=== PATIENT | female | born 1930 | race Caucasian/White ===

== ENCOUNTER 2019-07-04 15:13 | Inpatient (IN) | payer MEDICARE ==
[~2019-07-04] VITALS: Ht 149.9 cm; Wt 89.0 kg
--- NOTE | 2019-07-04 16:03 | PHYS DOC ---
Past Medical History Attending Signature I have participated in the care of this patient and I have reviewed and agree with all pertinent clinical information above including history, exam, and recommendations. (NATASHA NUÑEZ MD) Adult General Chief Complaint Chief Complaint: LOWER EXT PAIN HPI HPI Patient is a 88 year old female who presents with patient states that one week ago she was diagnosed with a right lower leg DVT by her doctor, Dr Michaels. She states she has had DVT in this leg twice before. Patient states they started her on injection that she cannot remember the name of the medication. She states she has been on it for 3 days now. Patient states that she's having increased pain in the right lower leg along the lateral side of the leg and states that the swelling is worse. She rates her pain a 6 out of 10. (CARL ARAIZA APRN) Review of Systems Review of Systems Musculoskeletal: Right leg pain and swelling. Denies back pain or joint pain [] All other systems were reviewed and found to be within normal limits, except as documented in this note. (CARL ARAIZA APRN) Allergies Allergies Allergies Coded Allergies Type Severity Reaction Last Updated Verified oxaprozin Allergy Intermediate 07/04/19 Yes (NATASHA NUÑEZ MD) Physical Exam Physical Exam Constitutional: Well developed, well nourished, no acute distress, non-toxic appearance. [] HENT: Normocephalic, atraumatic, bilateral external ears normal, oropharynx moist, no oral exudates, nose normal. [] Eyes: PERRLA, EOMI, conjunctiva normal, no discharge. [] Neck: Normal range of motion, no tenderness, supple, no stridor. [] Cardiovascular:Heart rate regular rhythm, no murmur [] Lungs & Thorax: Bilateral breath sounds clear to auscultation [] Skin: Warm, dry, no erythema, no rash. [] Extremities: Right calf tenderness, no cyanosis, no clubbing, ROM intact, Right leg 1+, and left leg2+ edema. [] Neurologic: Alert and oriented X 3, normal motor function, normal sensory function, no focal deficits noted. [] Psychologic: Affect normal, judgement normal, mood normal. [] (CARL ARAIZA APRN) Current Patient Data Vital Signs Vital Signs Date Time Temp Pulse Resp B/P (MAP) Pulse Ox O2 Delivery O2 Flow Rate FiO2 07/04/19 19:10 61 14 170/113 (132) 98 Room Air 07/04/19 15:47 98.3 98.3 (NATASHA NUÑEZ MD) Lab Values Laboratory Tests Test 07/04/19 16:17 White Blood Count 6.0 x10^3/uL (4.0-11.0) Red Blood Count 4.40 x10^6/uL (3.50-5.40) Hemoglobin 13.3 g/dL (12.0-15.5) Hematocrit 39.0 % (36.0-47.0) Mean Corpuscular Volume 89 fL (79-100) Mean Corpuscular Hemoglobin 30 pg (25-35) Mean Corpuscular Hemoglobin Concent 34 g/dL (31-37) Red Cell Distribution Width 14.1 % (11.5-14.5) Platelet Count 156 x10^3/uL (140-400) Neutrophils (%) (Auto) 59 % (31-73) Lymphocytes (%) (Auto) 28 % (24-48) Monocytes (%) (Auto) 12 % (0-9) H Eosinophils (%) (Auto) 1 % (0-3) Basophils (%) (Auto) 0 % (0-3) Neutrophils # (Auto) 3.5 x10^3/uL (1.8-7.7) Lymphocytes # (Auto) 1.7 x10^3/uL (1.0-4.8) Monocytes # (Auto) 0.7 x10^3/uL (0.0-1.1) Eosinophils # (Auto) 0.0 x10^3/uL (0.0-0.7) Basophils # (Auto) 0.0 x10^3/uL (0.0-0.2) Prothrombin Time 13.7 SEC (11.7-14.0) Prothrombin Time INR 1.1 (0.8-1.1) Sodium Level 134 mmol/L (136-145) L Potassium Level 4.6 mmol/L (3.5-5.1) Chloride Level 98 mmol/L (98-107) Carbon Dioxide Level 25 mmol/L (21-32) Anion Gap 11 (6-14) Blood Urea Nitrogen 41 mg/dL (7-20) H Creatinine 1.7 mg/dL (0.6-1.0) H Estimated GFR (Cockcroft-Gault) 28.3 BUN/Creatinine Ratio 24 (6-20) H Glucose Level 163 mg/dL (70-99) H Calcium Level 9.5 mg/dL (8.5-10.1) Total Bilirubin 0.6 mg/dL (0.2-1.0) Aspartate Amino Transferase (AST) 50 U/L (15-37) H Alanine Aminotransferase (ALT) 58 U/L (14-59) Alkaline Phosphatase 70 U/L (46-116) Total Protein 6.9 g/dL (6.4-8.2) Albumin 3.5 g/dL (3.4-5.0) Albumin/Globulin Ratio 1.0 (1.0-1.7) Laboratory Tests 07/04/19 16:17 Laboratory Tests 07/04/19 16:17 (NATASHA NUÑEZ MD) Lab Values Laboratory Tests Test 07/04/19 16:17 White Blood Count 6.0 x10^3/uL (4.0-11.0) Red Blood Count 4.40 x10^6/uL (3.50-5.40) Hemoglobin 13.3 g/dL (12.0-15.5) Hematocrit 39.0 % (36.0-47.0) Mean Corpuscular Volume 89 fL (79-100) Mean Corpuscular Hemoglobin 30 pg (25-35) Mean Corpuscular Hemoglobin Concent 34 g/dL (31-37) Red Cell Distribution Width 14.1 % (11.5-14.5) Platelet Count 156 x10^3/uL (140-400) Neutrophils (%) (Auto) 59 % (31-73) Lymphocytes (%) (Auto) 28 % (24-48) Monocytes (%) (Auto) 12 % (0-9) H Eosinophils (%) (Auto) 1 % (0-3) Basophils (%) (Auto) 0 % (0-3) Neutrophils # (Auto) 3.5 x10^3/uL (1.8-7.7) Lymphocytes # (Auto) 1.7 x10^3/uL (1.0-4.8) Monocytes # (Auto) 0.7 x10^3/uL (0.0-1.1) Eosinophils # (Auto) 0.0 x10^3/uL (0.0-0.7) Basophils # (Auto) 0.0 x10^3/uL (0.0-0.2) Prothrombin Time 13.7 SEC (11.7-14.0) Prothrombin Time INR 1.1 (0.8-1.1) Sodium Level 134 mmol/L (136-145) L Potassium Level 4.6 mmol/L (3.5-5.1) Chloride Level 98 mmol/L (98-107) Carbon Dioxide Level 25 mmol/L (21-32) Anion Gap 11 (6-14) Blood Urea Nitrogen 41 mg/dL (7-20) H Creatinine 1.7 mg/dL (0.6-1.0) H Estimated GFR (Cockcroft-Gault) 28.3 BUN/Creatinine Ratio 24 (6-20) H Glucose Level 163 mg/dL (70-99) H Calcium Level 9.5 mg/dL (8.5-10.1) Total Bilirubin 0.6 mg/dL (0.2-1.0) Aspartate Amino Transferase (AST) 50 U/L (15-37) H Alanine Aminotransferase (ALT) 58 U/L (14-59) Alkaline Phosphatase 70 U/L (46-116) Total Protein 6.9 g/dL (6.4-8.2) Albumin 3.5 g/dL (3.4-5.0) Albumin/Globulin Ratio 1.0 (1.0-1.7) Laboratory Tests 07/04/19 16:17 Laboratory Tests 07/04/19 16:17 (CARL ARAIZA APRN) EKG EKG [] (CARL ARAIZA APRN) Radiology/Procedures Radiology/Procedures [] (CARL ARAIZA APRN) Impressions: [facility] [address] [place], [place] [id number] IMAGING REPORT Signed PATIENT: ROXANN MYERS ACCOUNT: [id number] : 1930 LOCATION: ER AGE: 88 SEX: F EXAM STATUS: REG ER ORD. PHYSICIAN: CARL ARAIZA APRN REASON: recently dx dvt right leg, increase swelling, swelling more in left PROCEDURE: VENOUS LOWER EXT BILATERAL Exam: Bilateral lower extremity venous duplex study INDICATION: Leg swelling TECHNIQUE: Using a combination of real-time ultrasound imaging and color-flow and pulse Doppler imaging techniques along with graded compression and augmentation, duplex evaluation of the deep venous systems of bilateral lower extremity was performed. Multiple images were obtained. Findings: Nonocclusive thrombus in the anterior peroneal vein on the right, similar when compared to the study on 06/25/2019. Otherwise, There is no sonographic evidence for deep venous thrombosis involving the visualized deep venous structures of the bilateral lower extremity. IMPRESSION: 1. Similar appearing nonocclusive thrombus in the right anterior peroneal vein. 2. No left DVT. Electronically signed by: Kim Yap MD (07/04/2019 6:58 PM) [facility] DICTATED and SIGNED BY: KIM YAP MD DATE: 07/04/19 1858 (CARL ARAIZA APRN) Course & Med Decision Making Course & Med Decision Making Patient is a 88 year old female who presents with patient states that one week ago she was diagnosed with a right lower leg DVT by her doctor, Dr Michaels. She states she has had DVT in this leg twice before. Patient states they started her on injection that she cannot remember the name of the medication. She states she has been on it for 3 days now. Patient states that she's having increased pain in the right lower leg along the lateral side of the leg and states that the swelling is worse. She rates her pain a 6 out of 10. Alert and oriented. Ambulatory with a steady gait. Pedal pulses bilaterally are strong and present. Cap refill less than 3 seconds. Patient's right leg looks to have 1+ edema compared to the left leg that is actually more swollen with 2+ edema. Patient only complains of the right leg pain and DVT. Because the left leg is actually more swollen than the right leg I will ultrasound the left leg also. Lungs are c lear to auscultation all lobes. PERRLA. Patient denies headache, dizziness, chest pain, shortness of air, visual changes, weakness, numbness or tingling, skin color changes or temperature changes. Skin pink warm and dry. Right calf tenderness with palpation. equal strong strengths bilaterally lower extremities. US Lower legs: 1. Similar appearing nonocclusive thrombus in the right anterior peroneal vein. 2. No left DVT. Dr Richmond went and saw this patient and then called Dr Michaels. Patient is admitted to Dr Richmond. He states to keep the patient on Lovenox 80mg and consult vascular surgery. (CARL ARAIZA APRN) Dragon Disclaimer Dragon Disclaimer This electronic medical record was generated, in whole or in part, using a voice recognition dictation system. (CARL ARAIZA APRN) Departure Departure Impression: Primary Impression: DVT (deep venous thrombosis) Disposition: ADMITTED INPATIENT Admitting Physician: DANICA (CARL ARAIZA APRN) Condition: STABLE Problem Qualifiers Primary Impression: DVT (deep venous thrombosis) DVT location: lower extremity Affected thrombotic vein of extremity: unspecified lower extremity distal vein Chronicity: acute Laterality: right Qualified Codes: I82.4Z1 - Acute embolism and thrombosis of unspecified deep veins of right distal lower extremity CARL ARAIZA APRN Jul 04, 2019 16:03 NATASHA NUÑEZ MD Jul 05, 2019 09:40
[2019-07-04 16:25] LABS: BASO % 0 % (0-3); EOS % 1 % (0-3); HEMOGLOBIN 13.3 g/dL (12.0-15.5); LYMPH # 1.7 x10^3/uL (1.0-4.8); LYMPH % 28 % (24-48); MEAN CORPUSCULAR HEMOGLOBIN 30 pg (25-35); MEAN CORPUSCULAR HGB CONC 34 g/dL (31-37); MEAN CORPUSCULAR VOLUME 89 fL (79-100); MONO # 0.7 x10^3/uL (0.0-1.1); MONO % 12 % (0-9); NEUT # 3.5 x10^3/uL (1.8-7.7); NEUT % 59 % (31-73); PLATELET COUNT 156 x10^3/uL (140-400); RED CELL DISTRIBUTION WIDTH 14.1 % (11.5-14.5)
[2019-07-04 16:34] LABS: PROTHROMBIN TIME PATIENT 13.7 SEC (11.7-14.0)
[2019-07-04 16:43] LABS: CALCIUM 9.5 mg/dL (8.5-10.1); CREATININE 1.7 mg/dL (0.6-1.0); GFR 28.3; POTASSIUM 4.6 mmol/L (3.5-5.1)
[2019-07-04 16:49] LABS: ALBUMIN 3.5 g/dL (3.4-5.0); TOTAL BILIRUBIN 0.6 mg/dL (0.2-1.0); TOTAL PROTEIN 6.9 g/dL (6.4-8.2)
--- NOTE | 2019-07-04 19:01 | RAD ---
Exam: Bilateral lower extremity venous duplex study INDICATION: Leg swelling TECHNIQUE: Using a combination of real-time ultrasound imaging and color-flow and pulse Doppler imaging techniques along with graded compression and augmentation, duplex evaluation of the deep venous systems of bilateral lower extremity was performed. Multiple images were obtained. Findings: Nonocclusive thrombus in the anterior peroneal vein on the right, similar when compared to the study on 06/25/2019. Otherwise, There is no sonographic evidence for deep venous thrombosis involving the visualized deep venous structures of the bilateral lower extremity. IMPRESSION: 1. Similar appearing nonocclusive thrombus in the right anterior peroneal vein. 2. No left DVT. Electronically signed by: Kim Juan MD (07/04/2019 6:58 PM) [facility]
[2019-07-04] MEDS ORDERED: ONDANSETRON PF 4 MG/2 ML VIAL. IV PRN (19:45)
[2019-07-04] MEDS: fentaNYL PF VIAL 100 MCG/2 ML VIAL IV PRN (19:49)
--- NOTE | 2019-07-04 20:16 | HP ---
ADMIT DATE: 07/04/2019 CHIEF COMPLAINT: Extremity pain. HISTORY OF PRESENT ILLNESS: The patient is a pleasant 88-year-old female who had a recent diagnosis of a DVT in the right lower extremity. Dr. Michaels tried her on Eliquis, but the patient came back a week or so later and he did some more imaging because her leg was still hurting. Apparently, the clock got worse. Now, she presents to our ER with the same problem, her leg is hurting. We checked some imaging, the clot really is not worse, but is still there. I called Dr. Michaels. I talked to the ER doctor as well. We are going to admit the patient and consult Vascular Surgery. PAST MEDICAL HISTORY: The above-mentioned DVT. ALLERGIES: OXAPROZIN. FAMILY HISTORY: Coronary artery disease. SOCIAL HISTORY: She does not drink, smoke or take drugs. She is retired. MEDICATIONS: Reviewed, please refer to the MRAD. REVIEW OF SYSTEMS: GENERAL: No history of weight change, weakness or fevers. SKIN: No bruising, hair changes or rashes. EYES: No blurred, double or loss of vision. NOSE AND THROAT: No history of nosebleeds, hoarseness or sore throat. HEART: No history of palpitations, chest pain or shortness of breath on exertion. LUNGS: Denies cough, hemoptysis, wheezing or shortness of breath. GASTROINTESTINAL: Denies changes in appetite, nausea, vomiting, diarrhea or constipation. GENITOURINARY: No history of frequency, urgency, hesitancy or nocturia. NEUROLOGIC: Denies history of numbness, tingling, tremor or weakness. PSYCHIATRIC: No history of panic, anxiety or depression. ENDOCRINE: No history of heat or cold intolerance, polyuria or polydipsia. EXTREMITIES: She complains of right leg pain. PHYSICAL EXAMINATION: VITALS: Within normal limits and are stable. GENERAL: No apparent distress. Alert and oriented. HEENT: Head is normocephalic, atraumatic, pupils were equally round and reactive to light and accommodation. NECK: Supple, no JVD, no thyromegaly was noted. LUNGS: Clear to auscultation in all lung bennett without rhonchi or wheezing. HEART: RRR, S1, S2 present. Peripheral pulses intact, no obvious murmurs were noted. ABDOMEN: Soft, nontender. Positive bowel sounds no organomegaly, normal bowel sounds. EXTREMITIES: Without any cyanosis, clubbing, or edema. Pedal pulses intact, Homans sign is negative. NEUROLOGIC: Normal speech, normal tone. A & O x3, moves all extremities, no obvious focal deficits. PSYCHIATRIC: Normal affect, normal mood. Stable. SKIN: No ulcerations or rashes, good skin turgor, no jaundice. VASCULAR: Good capillary refill, neurovascular bundle appears to be intact. LABORATORY DATA: White count 6, hemoglobin 13, platelets 156. Electrolytes: Sodium 134, BUN is 41, creatinine 1.7, glucose 163. AST is slightly high at 50. INR is 1.1. ASSESSMENT AND PLAN: Acute on chronic deep venous thrombosis with worsening leg pain. The patient is being admitted. We will consult Vascular Surgery. Lovenox 1 mg/kg subq q.12, home meds, p.r.n. Lortab, IV hydration. TORSTEN BROWN DO DR: JARON/sol JOB#: [id number] / [id number]
[2019-07-04] MEDS: IV NORMAL SALINE 1000ML BAG 1,000 ML IV SCH (21:26)
[2019-07-04 21:31] VITALS: BP 185/62
[2019-07-04 23:46] VITALS: BP 197/62
[2019-07-05 03:42] VITALS: BP 190/66
[2019-07-05] MEDS: fentaNYL PF VIAL 100 MCG/2 ML VIAL IV PRN (05:37)
[2019-07-05] MEDS ORDERED: CHOL200074 PO (06:25)
[2019-07-05] MEDS ORDERED: PANT40TA77 PO (06:25)
[2019-07-05] MEDS ORDERED: MAGN400T22 PO (06:25)
[2019-07-05] MEDS ORDERED: ATOR40TA59 PO (06:25)
[2019-07-05] MEDS ORDERED: LEVO112T4 PO (06:25)
[2019-07-05] MEDS ORDERED: LOSA-73 PO (06:25)
[2019-07-05] MEDS ORDERED: BYSTOLIC10 MG PO (06:25)
[2019-07-05 07:59] VITALS: BP 129/60
--- NOTE | 2019-07-05 08:01 | PDOC ---
PROGRESS NOTES History of Present Illness History of Present Illness ASSESSMENT AND PLAN: Acute on chronic deep venous thrombosis with worsening leg pain. similar appearing nonocclusive thrombus in the right anterior peroneal vein. No left DVT. morbid obesity admitted. consult Vascular Surgery. Lovenox 1 mg/kg subq q.12, home meds, p.r.n. Lortab, IV hydration. id consult nephrology consult eliquis 5 mg po bid full anticoagulation for at least 3 months // DVT and compression stockings. 30 min pt exam, chart review, > 50% of time spent with exam, chart review, pt care coordination Vitals Vitals Vital Signs Date Time Temp Pulse Resp B/P (MAP) Pulse Ox O2 Delivery O2 Flow Rate FiO2 07/05/19 06:07 Room Air 07/05/19 03:42 97.7 59 18 190/66 (107) 96 97.7 Physical Exam Physical Exam NECK: Supple, no JVD, no thyromegaly was noted. LUNGS: Clear to auscultation in all lung bennett without rhonchi or wheezing. HEART: RRR, S1, S2 present. Peripheral pulses intact, no obvious murmurs were noted. ABDOMEN: Soft, nontender. Positive bowel sounds no organomegaly, normal bowel sounds. EXTREMITIES: Without any cyanosis, clubbing, or edema. Pedal pulses intact, Homans sign is negative. NEUROLOGIC: Normal speech, normal tone. A & O x3, moves all extremities, no obvious focal deficits. PSYCHIATRIC: Normal affect, normal mood. Stable. SKIN: No ulcerations or rashes, good skin turgor, no jaundice. VASCULAR: Good capillary refill, neurovascular bundle appears to be intact. General: Alert, Oriented X3, Cooperative, No acute distress Lungs: Clear Abdomen: Normal bowel sounds, Soft Extremities: No cyanosis Labs LABS Exam: Bilateral lower extremity venous duplex study INDICATION: Leg swelling TECHNIQUE: Using a combination of real-time ultrasound imaging and color-flow and pulse Doppler imaging techniques along with graded compression and augmentation, duplex evaluation of the deep venous systems of bilateral lower extremity was performed. Multiple images were obtained. Findings: Nonocclusive thrombus in the anterior peroneal vein on the right, similar when compared to the study on 06/25/2019. Otherwise, There is no sonographic evidence for deep venous thrombosis involving the visualized deep venous structures of the bilateral lower extremity. IMPRESSION: 1. Similar appearing nonocclusive thrombus in the right anterior peroneal vein. 2. No left DVT. Electronically signed by: Waylon Yap MD (07/04/2019 6:58 PM) [facility] DICTATED and SIGNED BY: WAYLON YAP MD DATE: 07/04/19 [id number] Laboratory Tests Test 07/04/19 16:17 White Blood Count 6.0 x10^3/uL (4.0-11.0) Red Blood Count 4.40 x10^6/uL (3.50-5.40) Hemoglobin 13.3 g/dL (12.0-15.5) Hematocrit 39.0 % (36.0-47.0) Mean Corpuscular Volume 89 fL (79-100) Mean Corpuscular Hemoglobin 30 pg (25-35) Mean Corpuscular Hemoglobin Concent 34 g/dL (31-37) Red Cell Distribution Width 14.1 % (11.5-14.5) Platelet Count 156 x10^3/uL (140-400) Neutrophils (%) (Auto) 59 % (31-73) Lymphocytes (%) (Auto) 28 % (24-48) Monocytes (%) (Auto) 12 % (0-9) Eosinophils (%) (Auto) 1 % (0-3) Basophils (%) (Auto) 0 % (0-3) Neutrophils # (Auto) 3.5 x10^3/uL (1.8-7.7) Lymphocytes # (Auto) 1.7 x10^3/uL (1.0-4.8) Monocytes # (Auto) 0.7 x10^3/uL (0.0-1.1) Eosinophils # (Auto) 0.0 x10^3/uL (0.0-0.7) Basophils # (Auto) 0.0 x10^3/uL (0.0-0.2) Prothrombin Time 13.7 SEC (11.7-14.0) Prothromb Time International Ratio 1.1 (0.8-1.1) Sodium Level 134 mmol/L (136-145) Potassium Level 4.6 mmol/L (3.5-5.1) Chloride Level 98 mmol/L (98-107) Carbon Dioxide Level 25 mmol/L (21-32) Anion Gap 11 (6-14) Blood Urea Nitrogen 41 mg/dL (7-20) Creatinine 1.7 mg/dL (0.6-1.0) Estimated GFR (Cockcroft-Gault) 28.3 BUN/Creatinine Ratio 24 (6-20) Glucose Level 163 mg/dL (70-99) Calcium Level 9.5 mg/dL (8.5-10.1) Total Bilirubin 0.6 mg/dL (0.2-1.0) Aspartate Amino Transf (AST/SGOT) 50 U/L (15-37) Alanine Aminotransferase (ALT/SGPT) 58 U/L (14-59) Alkaline Phosphatase 70 U/L (46-116) Total Protein 6.9 g/dL (6.4-8.2) Albumin 3.5 g/dL (3.4-5.0) Albumin/Globulin Ratio 1.0 (1.0-1.7) Assessment and Plan Assessmemt and Plan Problems Medical Problems: (1) DVT (deep venous thrombosis) Status: Acute Comment Review of Relevant I have reviewed the following items manju (where applicable) has been applied. Labs Laboratory Tests Test 07/04/19 16:17 White Blood Count 6.0 x10^3/uL (4.0-11.0) Red Blood Count 4.40 x10^6/uL (3.50-5.40) Hemoglobin 13.3 g/dL (12.0-15.5) Hematocrit 39.0 % (36.0-47.0) Mean Corpuscular Volume 89 fL (79-100) Mean Corpuscular Hemoglobin 30 pg (25-35) Mean Corpuscular Hemoglobin Concent 34 g/dL (31-37) Red Cell Distribution Width 14.1 % (11.5-14.5) Platelet Count 156 x10^3/uL (140-400) Neutrophils (%) (Auto) 59 % (31-73) Lymphocytes (%) (Auto) 28 % (24-48) Monocytes (%) (Auto) 12 % (0-9) Eosinophils (%) (Auto) 1 % (0-3) Basophils (%) (Auto) 0 % (0-3) Neutrophils # (Auto) 3.5 x10^3/uL (1.8-7.7) Lymphocytes # (Auto) 1.7 x10^3/uL (1.0-4.8) Monocytes # (Auto) 0.7 x10^3/uL (0.0-1.1) Eosinophils # (Auto) 0.0 x10^3/uL (0.0-0.7) Basophils # (Auto) 0.0 x10^3/uL (0.0-0.2) Prothrombin Time 13.7 SEC (11.7-14.0) Prothromb Time International Ratio 1.1 (0.8-1.1) Sodium Level 134 mmol/L (136-145) Potassium Level 4.6 mmol/L (3.5-5.1) Chloride Level 98 mmol/L (98-107) Carbon Dioxide Level 25 mmol/L (21-32) Anion Gap 11 (6-14) Blood Urea Nitrogen 41 mg/dL (7-20) Creatinine 1.7 mg/dL (0.6-1.0) Estimated GFR (Cockcroft-Gault) 28.3 BUN/Creatinine Ratio 24 (6-20) Glucose Level 163 mg/dL (70-99) Calcium Level 9.5 mg/dL (8.5-10.1) Total Bilirubin 0.6 mg/dL (0.2-1.0) Aspartate Amino Transf (AST/SGOT) 50 U/L (15-37) Alanine Aminotransferase (ALT/SGPT) 58 U/L (14-59) Alkaline Phosphatase 70 U/L (46-116) Total Protein 6.9 g/dL (6.4-8.2) Albumin 3.5 g/dL (3.4-5.0) Albumin/Globulin Ratio 1.0 (1.0-1.7) Laboratory Tests Test 07/04/19 16:17 White Blood Count 6.0 x10^3/uL (4.0-11.0) Red Blood Count 4.40 x10^6/uL (3.50-5.40) Hemoglobin 13.3 g/dL (12.0-15.5) Hematocrit 39.0 % (36.0-47.0) Mean Corpuscular Volume 89 fL (79-100) Mean Corpuscular Hemoglobin 30 pg (25-35) Mean Corpuscular Hemoglobin Concent 34 g/dL (31-37) Red Cell Distribution Width 14.1 % (11.5-14.5) Platelet Count 156 x10^3/uL (140-400) Neutrophils (%) (Auto) 59 % (31-73) Lymphocytes (%) (Auto) 28 % (24-48) Monocytes (%) (Auto) 12 % (0-9) Eosinophils (%) (Auto) 1 % (0-3) Basophils (%) (Auto) 0 % (0-3) Neutrophils # (Auto) 3.5 x10^3/uL (1.8-7.7) Lymphocytes # (Auto) 1.7 x10^3/uL (1.0-4.8) Monocytes # (Auto) 0.7 x10^3/uL (0.0-1.1) Eosinophils # (Auto) 0.0 x10^3/uL (0.0-0.7) Basophils # (Auto) 0.0 x10^3/uL (0.0-0.2) Prothrombin Time 13.7 SEC (11.7-14.0) Prothromb Time International Ratio 1.1 (0.8-1.1) Sodium Level 134 mmol/L (136-145) Potassium Level 4.6 mmol/L (3.5-5.1) Chloride Level 98 mmol/L (98-107) Carbon Dioxide Level 25 mmol/L (21-32) Anion Gap 11 (6-14) Blood Urea Nitrogen 41 mg/dL (7-20) Creatinine 1.7 mg/dL (0.6-1.0) Estimated GFR (Cockcroft-Gault) 28.3 BUN/Creatinine Ratio 24 (6-20) Glucose Level 163 mg/dL (70-99) Calcium Level 9.5 mg/dL (8.5-10.1) Total Bilirubin 0.6 mg/dL (0.2-1.0) Aspartate Amino Transf (AST/SGOT) 50 U/L (15-37) Alanine Aminotransferase (ALT/SGPT) 58 U/L (14-59) Alkaline Phosphatase 70 U/L (46-116) Total Protein 6.9 g/dL (6.4-8.2) Albumin 3.5 g/dL (3.4-5.0) Albumin/Globulin Ratio 1.0 (1.0-1.7) Medications Current Medications Ondansetron HCl (Zofran) 4 mg PRN Q8HRS PRN IV NAUSEA/VOMITING; Start 07/04/19 at 19:45; Stop 07/05/19 at 19:44 Fentanyl Citrate (Fentanyl 2ml Vial) 50 mcg PRN Q1HR PRN IV PAIN Last administered on 07/05/19at 05:37; Start 07/04/19 at 19:45; Stop 07/05/19 at 19:44 Enoxaparin Sodium (Lovenox 80mg Syringe) 80 mg 1X ONCE SQ Last administered on 07/04/19at 19:49; Start 07/04/19 at 19:45; Stop 07/04/19 at 19:46; Status DC Enoxaparin Sodium (Lovenox Per Pharmacy Treatment Dosing) 1 each PRN DAILY PRN MC SEE COMMENTS; Start 07/04/19 at 20:30 Sodium Chloride 1,000 ml @ 75 mls/hr [id number] IV Last administered on 07/04/19at 21:26; Start 07/04/19 at 20:00 Enoxaparin Sodium (Lovenox 40mg Syringe) 40 mg Q24H SQ ; Start 07/05/19 at 21:00; Stop 07/04/19 at 20:18; Status DC Acetaminophen/ Hydrocodone Bitart (Lortab 5/325) 1 tab Q6HRS PRN PO PAIN; Start 07/04/19 at 20:15 Enoxaparin Sodium (Lovenox 100mg Syringe) 90 mg QHS SQ ; Start 07/05/19 at 21:00 Active Scripts Active Reported Mag-Oxide (Magnesium Oxide) 400 Mg Tablet 1 Tab PO DAILY 30 Days Vitamin D-3 (Cholecalciferol (Vitamin D3)) 2,000 Unit Capsule 1 Cap PO DAILY 30 Days Losartan Potassium 50 Mg Tablet 50 Mg PO DAILY Atorvastatin Calcium 40 Mg Tablet 1 Tab PO QHS Bystolic (Nebivolol) 10 Mg Tablet 10 Mg PO DAILY Levothyroxine Sodium 112 Mcg Tablet 1 Tab PO DAILY Protonix (Pantoprazole Sodium) 40 Mg Tablet.dr 40 Mg PO DAILYAC Vitals/I & O Vital Sign - Last 24 Hours 07/04/19 07/04/19 07/04/19 07/04/19 15:47 16:10 16:40 17:10 Temp 98.3 98.3 Pulse 63 65 56 55 Resp 16 14 14 14 B/P (MAP) 222/87 (132) 164/72 (102) 163/70 (101) 171/72 (105) Pulse Ox 96 98 97 99 O2 Delivery Room Air Room Air Room Air Room Air 07/04/19 07/04/19 07/04/19 07/04/19 17:40 18:11 18:40 19:10 Pulse 54 58 54 61 Resp 14 14 14 14 B/P (MAP) 171/72 (105) 142/65 (90) 173/76 (108) 170/113 (132) Pulse Ox 97 97 98 98 O2 Delivery Room Air Room Air Room Air Room Air 07/04/19 07/04/19 07/04/19 07/04/19 19:40 19:49 20:10 20:45 Pulse 66 55 Resp 14 14 B/P (MAP) 179/93 (121) 187/77 (113) Pulse Ox 98 98 O2 Delivery Room Air Room Air Room Air Room Air 07/04/19 07/04/19 07/04/19 07/05/19 20:45 21:31 23:46 03:42 Temp 97.4 97.5 97.7 97.4 97.5 97.7 Pulse 60 61 59 Resp 18 20 18 B/P (MAP) 185/62 (103) 197/62 (107) 190/66 (107) Pulse Ox 97 98 96 O2 Delivery Room Air Room Air Room Air Room Air 07/05/19 07/05/19 05:37 06:07 O2 Delivery Room Air Room Air Intake and Output 07/04/19 07/04/19 07/05/19 15:00 23:00 07:00 Intake Total 320 ml Balance 320 ml SARAH CRUM MD Jul 05, 2019 08:01
[2019-07-05] MEDS: NYSTATIN TOPICAL POWDER 15GM BOTTLE. TP SCH ×2 (09:20→21:11)
[2019-07-05 11:00] VITALS: BP 169/69
[2019-07-05] MEDS: ANTI-COAG MONITOR BY PHARMACY. MC PRN (12:39)
[2019-07-05] MEDS: IV NORMAL SALINE 1000ML BAG 1,000 ML IV SCH ×2 (13:04→21:09)
--- NOTE | 2019-07-05 13:09 | PDOC2 ---
CONSULT Date of Consult Date of Consult DATE: 07/05/19 TIME: 13:07 Reason for Consult Reason for Consult: CRI Referring Physician Referring Physician: Yi Identification/Chief Complaint Chief Complaint DVT Source Source: Chart review, Patient History of Present Illness Reason for Visit: Raisa is a pleasant 88-year-old female who well followed for her security needs in the past. She has since transitioned to Dr. Garcia due to proximity in the [facility]. She claims she fell a few months ago in the yard and was noted to have issues with swelling in her lower extremity. She did have a previous lower extremity DVT in her right lower extremity. She was on Eliquis for a week or so. She continued to have pain and discomfort in her lower extremity and reimaging studies showed progression of her DVT. She was hence asked to present to the ER for further evaluation. He is known to have underlying chronic kidney disease, baseline creatinine is not known from our system. She does not recollect what her most recent creatinine or GFR has been. Given the weekend am unable to ascertain this from the office either. We were asked to see her and follow her for the same. Past Medical History Cardiovascular: CAD, HTN, Hyperlipidemia Musculoskeletal: Osteoarthritis Renal/: Chronic renal insuff Endocrine: Diabetes Family History Family History NC due to age Social History No ALCOHOL: none Lives: Alone Current Problem List Problem List Problems Medical Problems: (1) DVT (deep venous thrombosis) Status: Acute Current Medications Current Medications Current Medications Ondansetron HCl (Zofran) 4 mg PRN Q8HRS PRN IV NAUSEA/VOMITING; Start 07/04/19 at 19:45; Stop 07/05/19 at 19:44 Fentanyl Citrate (Fentanyl 2ml Vial) 50 mcg PRN Q1HR PRN IV PAIN Last administered on 07/05/19at 05:37; Start 07/04/19 at 19:45; Stop 07/05/19 at 19:44 Enoxaparin Sodium (Lovenox 80mg Syringe) 80 mg 1X ONCE SQ Last administered on 07/04/19at 19:49; Start 07/04/19 at 19:45; Stop 07/04/19 at 19:46; Status DC Enoxaparin Sodium (Lovenox Per Pharmacy Treatment Dosing) 1 each PRN DAILY PRN MC SEE COMMENTS; Start 07/04/19 at 20:30 Sodium Chloride 1,000 ml @ 75 mls/hr [id number] IV Last administered on 07/05/19at 13:04; Start 07/04/19 at 20:00 Enoxaparin Sodium (Lovenox 40mg Syringe) 40 mg Q24H SQ ; Start 07/05/19 at 21:00; Stop 07/04/19 at 20:18; Status DC Acetaminophen/ Hydrocodone Bitart (Lortab 5/325) 1 tab Q6HRS PRN PO PAIN; Start 07/04/19 at 20:15 Enoxaparin Sodium (Lovenox 100mg Syringe) 90 mg QHS SQ ; Start 07/05/19 at 21:00 Nystatin (Nystop) 1 prateek BID TP Last administered on 07/05/19at 09:20; Start 07/05/19 at 09:00 Info (Anti-Coagulation Monitoring By Pharmacy) 1 each PRN DAILY PRN MC SEE COMMENTS Last administered on 07/05/19at 12:39; Start 07/05/19 at 12:45 Active Scripts Active Reported Mag-Oxide (Magnesium Oxide) 400 Mg Tablet 1 Tab PO DAILY 30 Days Vitamin D-3 (Cholecalciferol (Vitamin D3)) 2,000 Unit Capsule 1 Cap PO DAILY 30 Days Losartan Potassium 50 Mg Tablet 50 Mg PO DAILY Atorvastatin Calcium 40 Mg Tablet 1 Tab PO QHS Bystolic (Nebivolol) 10 Mg Tablet 10 Mg PO DAILY Levothyroxine Sodium 112 Mcg Tablet 1 Tab PO DAILY Protonix (Pantoprazole Sodium) 40 Mg Tablet.dr 40 Mg PO DAILYAC Allergies Allergies: Coded Allergies: oxaprozin (Verified Allergy, Intermediate, 07/04/19) ROS Review of System Negative other than as reviewed under history of present illness Physical Exam Physical Exam General Appearance: Awake Alert Oriented x 3 In no Distress Eyes: VIsion Unchanged Conjunctiva Normal EN: No EN Drainage Mucous Memb. moist Neck: no JVD no JVP Supple no Thyromegaly CVS: S1 S2 no Murmur No Gallop No Rub + Edema R>> L Resp: no Rales no Rhonchi no Acc. Muscle use GI: BAS +ve NO Bruit Non Tender Non Distended : no CVA tenderness; no Suprapubic Tenderness SKIN: no Rashes Breast Exam deferred Mu.Sk: Adequate ROM no Muscle Atrophy Heme: Unable to palpate Obvious LAD no Splenomegaly NEURO: Good Strength and Tone Cranial Nerves II - XII grossly intact Psych: not Depressed no Active hallucination Vital Signs Vital Signs Date Time Temp Pulse Resp B/P (MAP) Pulse Ox O2 Delivery O2 Flow Rate FiO2 07/05/19 11:00 98.2 69 20 169/69 (102) 97 Room Air 98.2 Assessment & Plan Chronic kidney disease stage III/4: Most recent baseline creatinine is not available to me and patient does not recollect either. Attempt to get outpatient records to see when new baseline is. May need sonogram if not done in the recent past New onset DVT: Defer workup to primary team. We'll check UA to rule out nephrotic syndrome HTN: Current BP meds reviewed. See orders for changes. Edema discomfort in right lower extremity presumably associated with DVT Discussed Plan of Care and prognosis etc. at length with pt Labs Labs Laboratory Tests Test 07/04/19 16:17 White Blood Count 6.0 x10^3/uL (4.0-11.0) Red Blood Count 4.40 x10^6/uL (3.50-5.40) Hemoglobin 13.3 g/dL (12.0-15.5) Hematocrit 39.0 % (36.0-47.0) Mean Corpuscular Volume 89 fL (79-100) Mean Corpuscular Hemoglobin 30 pg (25-35) Mean Corpuscular Hemoglobin Concent 34 g/dL (31-37) Red Cell Distribution Width 14.1 % (11.5-14.5) Platelet Count 156 x10^3/uL (140-400) Neutrophils (%) (Auto) 59 % (31-73) Lymphocytes (%) (Auto) 28 % (24-48) Monocytes (%) (Auto) 12 % (0-9) Eosinophils (%) (Auto) 1 % (0-3) Basophils (%) (Auto) 0 % (0-3) Neutrophils # (Auto) 3.5 x10^3/uL (1.8-7.7) Lymphocytes # (Auto) 1.7 x10^3/uL (1.0-4.8) Monocytes # (Auto) 0.7 x10^3/uL (0.0-1.1) Eosinophils # (Auto) 0.0 x10^3/uL (0.0-0.7) Basophils # (Auto) 0.0 x10^3/uL (0.0-0.2) Prothrombin Time 13.7 SEC (11.7-14.0) Prothromb Time International Ratio 1.1 (0.8-1.1) Sodium Level 134 mmol/L (136-145) Potassium Level 4.6 mmol/L (3.5-5.1) Chloride Level 98 mmol/L (98-107) Carbon Dioxide Level 25 mmol/L (21-32) Anion Gap 11 (6-14) Blood Urea Nitrogen 41 mg/dL (7-20) Creatinine 1.7 mg/dL (0.6-1.0) Estimated GFR (Cockcroft-Gault) 28.3 BUN/Creatinine Ratio 24 (6-20) Glucose Level 163 mg/dL (70-99) Calcium Level 9.5 mg/dL (8.5-10.1) Total Bilirubin 0.6 mg/dL (0.2-1.0) Aspartate Amino Transf (AST/SGOT) 50 U/L (15-37) Alanine Aminotransferase (ALT/SGPT) 58 U/L (14-59) Alkaline Phosphatase 70 U/L (46-116) Total Protein 6.9 g/dL (6.4-8.2) Albumin 3.5 g/dL (3.4-5.0) Albumin/Globulin Ratio 1.0 (1.0-1.7) Laboratory Tests Test 07/04/19 16:17 White Blood Count 6.0 x10^3/uL (4.0-11.0) Red Blood Count 4.40 x10^6/uL (3.50-5.40) Hemoglobin 13.3 g/dL (12.0-15.5) Hematocrit 39.0 % (36.0-47.0) Mean Corpuscular Volume 89 fL (79-100) Mean Corpuscular Hemoglobin 30 pg (25-35) Mean Corpuscular Hemoglobin Concent 34 g/dL (31-37) Red Cell Distribution Width 14.1 % (11.5-14.5) Platelet Count 156 x10^3/uL (140-400) Neutrophils (%) (Auto) 59 % (31-73) Lymphocytes (%) (Auto) 28 % (24-48) Monocytes (%) (Auto) 12 % (0-9) Eosinophils (%) (Auto) 1 % (0-3) Basophils (%) (Auto) 0 % (0-3) Neutrophils # (Auto) 3.5 x10^3/uL (1.8-7.7) Lymphocytes # (Auto) 1.7 x10^3/uL (1.0-4.8) Monocytes # (Auto) 0.7 x10^3/uL (0.0-1.1) Eosinophils # (Auto) 0.0 x10^3/uL (0.0-0.7) Basophils # (Auto) 0.0 x10^3/uL (0.0-0.2) Prothrombin Time 13.7 SEC (11.7-14.0) Prothromb Time International Ratio 1.1 (0.8-1.1) Sodium Level 134 mmol/L (136-145) Potassium Level 4.6 mmol/L (3.5-5.1) Chloride Level 98 mmol/L (98-107) Carbon Dioxide Level 25 mmol/L (21-32) Anion Gap 11 (6-14) Blood Urea Nitrogen 41 mg/dL (7-20) Creatinine 1.7 mg/dL (0.6-1.0) Estimated GFR (Cockcroft-Gault) 28.3 BUN/Creatinine Ratio 24 (6-20) Glucose Level 163 mg/dL (70-99) Calcium Level 9.5 mg/dL (8.5-10.1) Total Bilirubin 0.6 mg/dL (0.2-1.0) Aspartate Amino Transf (AST/SGOT) 50 U/L (15-37) Alanine Aminotransferase (ALT/SGPT) 58 U/L (14-59) Alkaline Phosphatase 70 U/L (46-116) Total Protein 6.9 g/dL (6.4-8.2) Albumin 3.5 g/dL (3.4-5.0) Albumin/Globulin Ratio 1.0 (1.0-1.7) Review All relevant outside records, renal labs, imaging studies, telemetry/EKG's were reviewed. NOY LISA MD Jul 05, 2019 13:09
--- NOTE | 2019-07-05 13:21 | PDOC ---
Provider Note Provider Note Vascular Surgery Consult 88 year old female admitted to the hospital with right leg peroneal vein deep venous thrombosis. Duplex scan shows non-occlusive thrombus in the right peroneal vein only. She has mild swelling and pain on examination in the lower right leg. She has mild swelling in the left leg with negative duplex scan. Palpable pedal pulses. Recommend full anticoagulation for at least 3 months per medical physicians for the DVT and compression stockings. No intervention is needed. Please call with further questions. MICAELA BENZ MD Jul 05, 2019 13:21
[2019-07-05 15:00] VITALS: BP 157/50
[2019-07-05 15:48] LABS: CALCIUM 9.5 mg/dL (8.5-10.1); CREATININE 1.6 mg/dL (0.6-1.0); GFR 30.3; POTASSIUM 4.7 mmol/L (3.5-5.1); PROTHROMBIN TIME PATIENT 14.5 SEC (11.7-14.0)
[2019-07-05 19:56] VITALS: BP 187/46
[2019-07-05] MEDS ORDERED: ENOXAPARIN 40 MG/0.4 ML SYRINGE. SQ SCH (21:00)
[2019-07-05] MEDS: APIXABAN 5 MG TABLET. PO SCH (21:06)
[2019-07-05] MEDS: HYDROcodone/APAP 5/325MG 1 TAB TABLET PO PRN (23:17)
[2019-07-05 23:18] VITALS: BP 196/69
[2019-07-05 23:48] LABS: BILIRUBIN,URINE NEGATIVE (NEG); CLARITY,URINE CLEAR; COLOR,URINE YELLOW; NITRITE,URINE NEGATIVE (NEG); PH,URINE 6.5; PROTEIN,URINE NEGATIVE (NEG-TRACE)
[2019-07-05 23:53] LABS: SQUAMOUS EPITHELIAL CELL,UR MOD /LPF
[2019-07-05 23:54] LABS: BACTERIA,URINE FEW /HPF (0-FEW)
[2019-07-06 03:41] VITALS: BP 171/68
[2019-07-06 05:49] LABS: CALCIUM 9.3 mg/dL (8.5-10.1); CREATININE 1.5 mg/dL (0.6-1.0); GFR 32.7; PHOSPHORUS 3.3 mg/dL (2.6-4.7); POTASSIUM 4.6 mmol/L (3.5-5.1)
[2019-07-06 07:44] VITALS: BP 167/55
[2019-07-06] MEDS: APIXABAN 5 MG TABLET. PO SCH ×2 (08:32→20:19)
[2019-07-06] MEDS: NYSTATIN TOPICAL POWDER 15GM BOTTLE. TP SCH ×2 (08:33→20:19)
--- NOTE | 2019-07-06 08:56 | RAD ---
RENAL COMPLETE BILATERAL History: Renal insufficiency Comparison: None. Findings: Multiple sonographic images of the kidneys and urinary bladder are submitted. Right kidney measured 9.4 x 3.6 x 4.2 cm, no hydronephrosis. There is a hyperechoic lesion of the superior right kidney about 0.8 x 1 x 0.8 cm, no color Doppler images of this region submitted. Left kidney measured 9.8 x 3.8 x 4.6 cm, no hydronephrosis. There is a 0.6 cm hyperechoic focus of the mid to superior left kidney which may be a calculus. Abdominal aorta and inferior vena cava are obscured on this exam by bowel gas. Urinary bladder morphology is within normal limits. Ureteral jets are seen bilaterally in the urinary bladder lumen. Impression: 1. Both kidneys are somewhat atrophic, no hydronephrosis. 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 There is probable 0.6 cm calculus of the left kidney. Electronically signed by: Bob Landrum MD (07/06/2019 8:52 AM) [facility]
--- NOTE | 2019-07-06 10:19 | PDOC ---
PROGRESS NOTES History of Present Illness History of Present Illness ASSESSMENT Acute on chronic deep venous thrombosis with worsening leg pain. similar appearing nonocclusive thrombus in the right anterior peroneal vein. No left DVT. morbid obesity Acute renal failure, vasomotor-nephropathy CKD 3-4 cr down to 1.5 ON US 07/05 Both kidneys are somewhat atrophic, no hydronephrosis. 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 There is probable 0.6 cm calculus of the left kidney. UNCONTROLLED HTN admitted. consult Vascular Surgery. Lovenox 1 mg/kg subq q.12, home meds, p.r.n. Lortab, IV hydration. id consult nephrology following eliquis 5 mg po bid HOME MEDS PRN IV HYDRALAZINE 10MG Q 4 HRS PRN BP CONTROL full anticoagulation for at least 3 months // DVT and compression stockings. 29 min pt exam, chart review, > 50% of time spent with exam, chart review, pt care coordination Vitals Vitals Vital Signs Date Time Temp Pulse Resp B/P (MAP) Pulse Ox O2 Delivery O2 Flow Rate FiO2 07/06/19 08:00 Room Air 07/06/19 07:44 98.5 64 18 167/55 (92) 97 98.5 Physical Exam Physical Exam NECK: Supple, no JVD, no thyromegaly was noted. LUNGS: Clear to auscultation in all lung bennett without rhonchi or wheezing. HEART: RRR, S1, S2 present. Peripheral pulses intact, no obvious murmurs were noted. ABDOMEN: Soft, nontender. Positive bowel sounds no organomegaly, normal bowel sounds. EXTREMITIES: Without any cyanosis, clubbing, or edema. Pedal pulses intact, Homans sign is negative. NEUROLOGIC: Normal speech, normal tone. A & O x3, moves all extremities, no obvious focal deficits. PSYCHIATRIC: Normal affect, normal mood. Stable. SKIN: No ulcerations or rashes, good skin turgor, no jaundice. VASCULAR: Good capillary refill, neurovascular bundle appears to be intact. RIGHT CALF NOT TENDER General: Alert, Oriented X3, Cooperative, No acute distress Heart: Regular rate Lungs: Clear Abdomen: Normal bowel sounds, Soft, No hepatosplenomegaly Extremities: No cyanosis Labs LABS RENAL COMPLETE BILATERAL History: Renal insufficiency Comparison: None. Findings: Multiple sonographic images of the kidneys and urinary bladder are submitted. Right kidney measured 9.4 x 3.6 x 4.2 cm, no hydronephrosis. There is a hyperechoic lesion of the superior right kidney about 0.8 x 1 x 0.8 cm, no color Doppler images of this region submitted. Left kidney measured 9.8 x 3.8 x 4.6 cm, no hydronephrosis. There is a 0.6 cm hyperechoic focus of the mid to superior left kidney which may be a calculus. Abdominal aorta and inferior vena cava are obscured on this exam by bowel gas. Urinary bladder morphology is within normal limits. Ureteral jets are seen bilaterally in the urinary bladder lumen. Impression: 1. Both kidneys are somewhat atrophic, no hydronephrosis. 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 There is probable 0.6 cm calculus of the left kidney. Electronically signed by: Bob Landrum MD (07/06/2019 8:52 AM) [facility] Laboratory Tests Test 07/05/19 15:04 07/05/19 23:31 07/06/19 05:00 Prothrombin Time 14.5 SEC (11.7-14.0) Prothromb Time International Ratio 1.2 (0.8-1.1) Sodium Level 137 mmol/L (136-145) 136 mmol/L (136-145) Potassium Level 4.7 mmol/L (3.5-5.1) 4.6 mmol/L (3.5-5.1) Chloride Level 101 mmol/L (98-107) 104 mmol/L (98-107) Carbon Dioxide Level 27 mmol/L (21-32) 24 mmol/L (21-32) Anion Gap 9 (6-14) 8 (6-14) Blood Urea Nitrogen 37 mg/dL (7-20) 35 mg/dL (7-20) Creatinine 1.6 mg/dL (0.6-1.0) 1.5 mg/dL (0.6-1.0) Estimated GFR (Cockcroft-Gault) 30.3 32.7 Glucose Level 186 mg/dL (70-99) 139 mg/dL (70-99) Calcium Level 9.5 mg/dL (8.5-10.1) 9.3 mg/dL (8.5-10.1) Urine Color Yellow Urine Clarity Clear Urine pH 6.5 Urine Specific Cooks 1.010 Urine Protein Negative mg/dL (NEG-TRACE) Urine Glucose (UA) Negative mg/dL (NEG) Urine Ketones (Stick) Negative mg/dL (NEG) Urine Blood Trace (NEG) Urine Nitrite Negative (NEG) Urine Bilirubin Negative (NEG) Urine Urobilinogen Dipstick 1.0 mg/dL (0.2 mg/dL) Urine Leukocyte Esterase Small (NEG) Urine RBC 3-5 /HPF (0-2) Urine WBC 11-20 /HPF (0-4) Urine Squamous Epithelial Cells Mod /LPF Urine Bacteria Few /HPF (0-FEW) Urine Mucus Slight /LPF Phosphorus Level 3.3 mg/dL (2.6-4.7) Albumin 3.0 g/dL (3.4-5.0) Assessment and Plan Assessmemt and Plan Problems Medical Problems: (1) DVT (deep venous thrombosis) Status: Acute Comment Review of Relevant I have reviewed the following items manju (where applicable) has been applied. Labs Laboratory Tests Test 07/04/19 16:17 07/05/19 15:04 07/05/19 23:31 07/06/19 05:00 White Blood Count 6.0 x10^3/uL (4.0-11.0) Red Blood Count 4.40 x10^6/uL (3.50-5.40) Hemoglobin 13.3 g/dL (12.0-15.5) Hematocrit 39.0 % (36.0-47.0) Mean Corpuscular Volume 89 fL (79-100) Mean Corpuscular Hemoglobin 30 pg (25-35) Mean Corpuscular Hemoglobin Concent 34 g/dL (31-37) Red Cell Distribution Width 14.1 % (11.5-14.5) Platelet Count 156 x10^3/uL (140-400) Neutrophils (%) (Auto) 59 % (31-73) Lymphocytes (%) (Auto) 28 % (24-48) Monocytes (%) (Auto) 12 % (0-9) Eosinophils (%) (Auto) 1 % (0-3) Basophils (%) (Auto) 0 % (0-3) Neutrophils # (Auto) 3.5 x10^3/uL (1.8-7.7) Lymphocytes # (Auto) 1.7 x10^3/uL (1.0-4.8) Monocytes # (Auto) 0.7 x10^3/uL (0.0-1.1) Eosinophils # (Auto) 0.0 x10^3/uL (0.0-0.7) Basophils # (Auto) 0.0 x10^3/uL (0.0-0.2) Prothrombin Time 13.7 SEC (11.7-14.0) 14.5 SEC (11.7-14.0) Prothromb Time International Ratio 1.1 (0.8-1.1) 1.2 (0.8-1.1) Sodium Level 134 mmol/L (136-145) 137 mmol/L (136-145) 136 mmol/L (136-145) Potassium Level 4.6 mmol/L (3.5-5.1) 4.7 mmol/L (3.5-5.1) 4.6 mmol/L (3.5-5.1) Chloride Level 98 mmol/L (98-107) 101 mmol/L (98-107) 104 mmol/L (98-107) Carbon Dioxide Level 25 mmol/L (21-32) 27 mmol/L (21-32) 24 mmol/L (21-32) Anion Gap 11 (6-14) 9 (6-14) 8 (6-14) Blood Urea Nitrogen 41 mg/dL (7-20) 37 mg/dL (7-20) 35 mg/dL (7-20) Creatinine 1.7 mg/dL (0.6-1.0) 1.6 mg/dL (0.6-1.0) 1.5 mg/dL (0.6-1.0) Estimated GFR (Cockcroft-Gault) 28.3 30.3 32.7 BUN/Creatinine Ratio 24 (6-20) Glucose Level 163 mg/dL (70-99) 186 mg/dL (70-99) 139 mg/dL (70-99) Calcium Level 9.5 mg/dL (8.5-10.1) 9.5 mg/dL (8.5-10.1) 9.3 mg/dL (8.5-10.1) Total Bilirubin 0.6 mg/dL (0.2-1.0) Aspartate Amino Transf (AST/SGOT) 50 U/L (15-37) Alanine Aminotransferase (ALT/SGPT) 58 U/L (14-59) Alkaline Phosphatase 70 U/L (46-116) Total Protein 6.9 g/dL (6.4-8.2) Albumin 3.5 g/dL (3.4-5.0) 3.0 g/dL (3.4-5.0) Albumin/Globulin Ratio 1.0 (1.0-1.7) Urine Color Yellow Urine Clarity Clear Urine pH 6.5 Urine Specific Cooks 1.010 Urine Protein Negative mg/dL (NEG-TRACE) Urine Glucose (UA) Negative mg/dL (NEG) Urine Ketones (Stick) Negative mg/dL (NEG) Urine Blood Trace (NEG) Urine Nitrite Negative (NEG) Urine Bilirubin Negative (NEG) Urine Urobilinogen Dipstick 1.0 mg/dL (0.2 mg/dL) Urine Leukocyte Esterase Small (NEG) Urine RBC 3-5 /HPF (0-2) Urine WBC 11-20 /HPF (0-4) Urine Squamous Epithelial Cells Mod /LPF Urine Bacteria Few /HPF (0-FEW) Urine Mucus Slight /LPF Phosphorus Level 3.3 mg/dL (2.6-4.7) Laboratory Tests Test 07/05/19 15:04 07/05/19 23:31 07/06/19 05:00 Prothrombin Time 14.5 SEC (11.7-14.0) Prothromb Time International Ratio 1.2 (0.8-1.1) Sodium Level 137 mmol/L (136-145) 136 mmol/L (136-145) Potassium Level 4.7 mmol/L (3.5-5.1) 4.6 mmol/L (3.5-5.1) Chloride Level 101 mmol/L (98-107) 104 mmol/L (98-107) Carbon Dioxide Level 27 mmol/L (21-32) 24 mmol/L (21-32) Anion Gap 9 (6-14) 8 (6-14) Blood Urea Nitrogen 37 mg/dL (7-20) 35 mg/dL (7-20) Creatinine 1.6 mg/dL (0.6-1.0) 1.5 mg/dL (0.6-1.0) Estimated GFR (Cockcroft-Gault) 30.3 32.7 Glucose Level 186 mg/dL (70-99) 139 mg/dL (70-99) Calcium Level 9.5 mg/dL (8.5-10.1) 9.3 mg/dL (8.5-10.1) Urine Color Yellow Urine Clarity Clear Urine pH 6.5 Urine Specific Cooks 1.010 Urine Protein Negative mg/dL (NEG-TRACE) Urine Glucose (UA) Negative mg/dL (NEG) Urine Ketones (Stick) Negative mg/dL (NEG) Urine Blood Trace (NEG) Urine Nitrite Negative (NEG) Urine Bilirubin Negative (NEG) Urine Urobilinogen Dipstick 1.0 mg/dL (0.2 mg/dL) Urine Leukocyte Esterase Small (NEG) Urine RBC 3-5 /HPF (0-2) Urine WBC 11-20 /HPF (0-4) Urine Squamous Epithelial Cells Mod /LPF Urine Bacteria Few /HPF (0-FEW) Urine Mucus Slight /LPF Phosphorus Level 3.3 mg/dL (2.6-4.7) Albumin 3.0 g/dL (3.4-5.0) Medications Current Medications Ondansetron HCl (Zofran) 4 mg PRN Q8HRS PRN IV NAUSEA/VOMITING; Start 07/04/19 at 19:45; Stop 07/05/19 at 19:44; Status DC Fentanyl Citrate (Fentanyl 2ml Vial) 50 mcg PRN Q1HR PRN IV PAIN Last administered on 07/05/19at 05:37; Start 07/04/19 at 19:45; Stop 07/05/19 at 19:44; Status DC Enoxaparin Sodium (Lovenox 80mg Syringe) 80 mg 1X ONCE SQ Last administered on 07/04/19at 19:49; Start 07/04/19 at 19:45; Stop 07/04/19 at 19:46; Status DC Enoxaparin Sodium (Lovenox Per Pharmacy Treatment Dosing) 1 each PRN DAILY PRN MC SEE COMMENTS; Start 07/04/19 at 20:30; Stop 07/05/19 at 14:19; Status DC Sodium Chloride 1,000 ml @ 75 mls/hr [id number] IV Last administered on 07/05/19at 21:09; Start 07/04/19 at 20:00 Enoxaparin Sodium (Lovenox 40mg Syringe) 40 mg Q24H SQ ; Start 07/05/19 at 21:00; Stop 07/04/19 at 20:18; Status DC Acetaminophen/ Hydrocodone Bitart (Lortab 5/325) 1 tab Q6HRS PRN PO PAIN Last administered on 07/05/19at 23:17; Start 07/04/19 at 20:15 Enoxaparin Sodium (Lovenox 100mg Syringe) 90 mg QHS SQ ; Start 07/05/19 at 21:00; Stop 07/05/19 at 14:19; Status DC Nystatin (Nystop) 1 prateek BID TP Last administered on 07/06/19at 08:33; Start 07/05/19 at 09:00 Info (Anti-Coagulation Monitoring By Pharmacy) 1 each PRN DAILY PRN MC SEE COMMENTS Last administered on 07/05/19at 12:39; Start 07/05/19 at 12:45 Apixaban (Eliquis) 5 mg BID PO Last administered on 07/06/19at 08:32; Start 07/05/19 at 21:00 Active Scripts Active Reported Mag-Oxide (Magnesium Oxide) 400 Mg Tablet 1 Tab PO DAILY 30 Days Vitamin D-3 (Cholecalciferol (Vitamin D3)) 2,000 Unit Capsule 1 Cap PO DAILY 30 Days Losartan Potassium 50 Mg Tablet 50 Mg PO DAILY Atorvastatin Calcium 40 Mg Tablet 1 Tab PO QHS Bystolic (Nebivolol) 10 Mg Tablet 10 Mg PO DAILY Levothyroxine Sodium 112 Mcg Tablet 1 Tab PO DAILY Protonix (Pantoprazole Sodium) 40 Mg Tablet.dr 40 Mg PO DAILYAC Vitals/I & O Vital Sign - Last 24 Hours 07/05/19 07/05/19 07/05/19 07/05/19 11:00 15:00 19:56 20:00 Temp 98.2 98.4 97.7 98.2 98.4 97.7 Pulse 69 61 67 Resp 20 16 16 B/P (MAP) 169/69 (102) 157/50 (85) 187/46 (93) Pulse Ox 97 95 97 O2 Delivery Room Air Room Air Room Air Room Air 10/12/19 10/12/19 10/13/19 10/13/19 23:17 23:18 00:22 03:41 Temp 98.4 98.4 98.4 98.4 Pulse 71 56 Resp 16 16 B/P (MAP) 196/69 (111) 171/68 (102) Pulse Ox 97 97 O2 Delivery Room Air Room Air Room Air Room Air 07/06/19 07/06/19 07:44 08:00 Temp 98.5 98.5 Pulse 64 Resp 18 B/P (MAP) 167/55 (92) Pulse Ox 97 O2 Delivery Room Air Room Air Intake and Output 07/05/19 07/05/19 07/06/19 14:59 22:59 06:59 Intake Total 1245 ml 400 ml 0 ml Output Total 600 ml 300 ml Balance 1245 ml -200 ml -300 ml SARAH CRUM MD Jul 06, 2019 10:19
[2019-07-06 11:56] VITALS: BP 175/51
[2019-07-06] MEDS: CHOLECALCIFEROL (VITAMIN D3) 1,000 UNIT TABLET PO SCH (11:57)
[2019-07-06] MEDS: PANTOPRAZOLE 40 MG TABLET.DR. PO SCH (11:57)
[2019-07-06] MEDS: MAGNESIUM OXIDE 400 MG TABLET PO SCH (11:57)
[2019-07-06] MEDS: HYDROcodone/APAP 5/325MG 1 TAB TABLET PO PRN ×2 (11:58→20:21)
[2019-07-06] MEDS: LEVOTHYROXINE 112 MCG TABLET PO SCH (11:58)
[2019-07-06] MEDS: METOPROLOL TART IMMED RELEASE 50 MG TABLET. PO SCH ×2 (11:58→20:19)
[2019-07-06] MEDS: IV NORMAL SALINE 1000ML BAG 1,000 ML IV SCH (11:59)
[2019-07-06] MEDS ORDERED: LOSARTAN POTASSIUM 50 MG TABLET. PO SCH (12:00)
[2019-07-06] MEDS: ANTI-COAG MONITOR BY PHARMACY. MC PRN (12:25)
--- NOTE | 2019-07-06 12:26 | PDOC ---
SUBJECTIVE ROS Follow-up for chronic kidney disease stage III Patient denies new complaints OBJECTIVE Vital Signs Vital Signs Date Time Temp Pulse Resp B/P (MAP) Pulse Ox O2 Delivery O2 Flow Rate FiO2 07/06/19 11:58 71 175/51 07/06/19 11:56 97.3 16 97 Room Air 97.3 I & 0 Intake and Output 07/06/19 07:00 Intake Total 1645 ml Output Total 900 ml Balance 745 ml Intake Oral 670 ml IV Total 975 ml Output Urine Total 900 ml PHYSICAL EXAM Physical Exam General Appearance: Awake Alert Oriented x 3 In no Distress Eyes: VIsion Unchanged Conjunctiva Normal EN: No EN Drainage Mucous Memb. m oist Neck: no JVD no JVP Supple no Thyromegaly CVS: S1 S2 soft Murmur No Gallop No Rub + R > L Edema Resp: no Rales no Rhonchi no Acc. Muscle use GI: BAS +ve NO Bruit Non Tender Non Distended : no CVA tenderness; no Suprapubic Tenderness DIAGNOSIS/ASSESSMENT Assessment & Plan Chronic Kidney disease stage III: Stable kidney function with creatinine between 1.5 and 1.7 at presentation. Accelerated hypertension: Increase Cozaar 200 mg once a day. If blood pressures remain uncontrolled, may need renal artery duplex superior right kidney, possibly a lipoma: May need follow-up as outpatient with urology There is probable 0.6 cm calculus of the left kidney noted on sonogram. Patient remains asymptomatic at this time and hence no intervention. The reason to have patient follow-up with urology COMMENT/RELEVANT DATA Meds Current Medications Medications (Trade) Dose Ordered Sig/Alfred Start Time Stop Time Status Last Admin Dose Admin Acetaminophen/ Hydrocodone Bitart (Lortab 5/325) 1 tab Q6HRS PRN 07/04/19 20:15 07/06/19 11:58 1 TAB Apixaban (Eliquis) 5 mg BID 07/05/19 21:00 07/06/19 08:32 5 MG Atorvastatin Calcium (Lipitor) 40 mg QHS 07/06/19 21:00 Enoxaparin Sodium (Lovenox 100mg Syringe) 90 mg QHS 07/05/19 21:00 07/05/19 14:19 DC Enoxaparin Sodium (Lovenox 40mg Syringe) 40 mg Q24H 07/05/19 21:00 07/04/19 20:18 DC Enoxaparin Sodium (Lovenox 80mg Syringe) 80 mg 1X ONCE 07/04/19 19:45 07/04/19 19:46 DC 07/04/19 19:49 80 MG Enoxaparin Sodium (Lovenox Per Pharmacy Treatment Dosing) 1 each PRN DAILY PRN 07/04/19 20:30 07/05/19 14:19 DC Fentanyl Citrate (Fentanyl 2ml Vial) 50 mcg PRN Q1HR PRN 07/04/19 19:45 07/05/19 19:44 DC 07/05/19 05:37 50 MCG Info (Anti-Coagulation Monitoring By Pharmacy) 1 each PRN DAILY PRN 07/05/19 12:45 07/05/19 12:39 1 EACH Levothyroxine Sodium (Synthroid) 112 mcg DAILY06 07/06/19 13:00 07/06/19 11:58 112 MCG Losartan Potassium (Cozaar) 50 mg DAILY 07/06/19 12:00 07/06/19 11:58 50 MG Magnesium Oxide (Magnesium Oxide) 400 mg DAILY 07/06/19 12:00 07/06/19 11:57 400 MG Metoprolol Tartrate (Lopressor) 50 mg BID 07/06/19 12:00 07/06/19 11:58 50 MG Nystatin (Nystop) 1 prateek BID 07/05/19 09:00 07/06/19 08:33 1 PRATEEK Ondansetron HCl (Zofran) 4 mg PRN Q8HRS PRN 07/04/19 19:45 07/05/19 19:44 DC Pantoprazole Sodium (Protonix) 40 mg DAILYAC 07/06/19 12:00 07/06/19 11:57 40 MG Sodium Chloride 1,000 ml @ 75 mls/hr [id number] 07/04/19 20:00 07/05/19 21:09 75 MLS/HR Vitamin D (Vitamin D3) 2,000 unit DAILY 07/06/19 12:00 07/06/19 11:57 2,000 UNIT Lab Laboratory Tests Test 07/05/19 15:04 07/05/19 23:31 07/06/19 05:00 Prothrombin Time 14.5 SEC (11.7-14.0) Prothromb Time International Ratio 1.2 (0.8-1.1) Sodium Level 137 mmol/L (136-145) 136 mmol/L (136-145) Potassium Level 4.7 mmol/L (3.5-5.1) 4.6 mmol/L (3.5-5.1) Chloride Level 101 mmol/L (98-107) 104 mmol/L (98-107) Carbon Dioxide Level 27 mmol/L (21-32) 24 mmol/L (21-32) Anion Gap 9 (6-14) 8 (6-14) Blood Urea Nitrogen 37 mg/dL (7-20) 35 mg/dL (7-20) Creatinine 1.6 mg/dL (0.6-1.0) 1.5 mg/dL (0.6-1.0) Estimated GFR (Cockcroft-Gault) 30.3 32.7 Glucose Level 186 mg/dL (70-99) 139 mg/dL (70-99) Calcium Level 9.5 mg/dL (8.5-10.1) 9.3 mg/dL (8.5-10.1) Urine Color Yellow Urine Clarity Clear Urine pH 6.5 Urine Specific [place] 1.010 Urine Protein Negative mg/dL (NEG-TRACE) Urine Glucose (UA) Negative mg/dL (NEG) Urine Ketones (Stick) Negative mg/dL (NEG) Urine Blood Trace (NEG) Urine Nitrite Negative (NEG) Urine Bilirubin Negative (NEG) Urine Urobilinogen Dipstick 1.0 mg/dL (0.2 mg/dL) Urine Leukocyte Esterase Small (NEG) Urine RBC 3-5 /HPF (0-2) Urine WBC 11-20 /HPF (0-4) Urine Squamous Epithelial Cells Mod /LPF Urine Bacteria Few /HPF (0-FEW) Urine Mucus Slight /LPF Phosphorus Level 3.3 mg/dL (2.6-4.7) Albumin 3.0 g/dL (3.4-5.0) Results All relevant outside records, renal labs, imaging studies, telemetry/EKG's were reviewed. Other Impression: 1. Both kidneys are somewhat atrophic, no hydronephrosis. 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 There is probable 0.6 cm calculus of the left kidney. NOY LISA MD Jul 06, 2019 12:26
[2019-07-06] MEDS ORDERED: LOSARTAN POTASSIUM 50 MG TABLET. PO ONE (13:00)
[2019-07-06 15:49] VITALS: BP 143/42
[2019-07-06] MEDS ORDERED: SPIR25TA5 PO (18:03)
[2019-07-06 19:44] VITALS: BP 152/59
[2019-07-06] MEDS ORDERED: TEMAZEPAM 7.5 MG CAPSULE PO PRN (20:15)
[2019-07-06] MEDS ORDERED: ACETAMINOPHEN 500 MG TABLET PO PRN (20:15)
[2019-07-06] MEDS ORDERED: ONDANSETRON PF 4 MG/2 ML VIAL. IVP PRN (20:15)
[2019-07-06] MEDS ORDERED: cloNIDine HCL 0.1 MG TABLET PO PRN (20:15)
[2019-07-06] MEDS ORDERED: ATORVASTATIN CALCIUM 40 MG TABLET. PO SCH (21:00)
[2019-07-06 23:20] VITALS: BP 162/54
[2019-07-07 03:34] VITALS: BP 165/59
[2019-07-07] MEDS: LEVOTHYROXINE 112 MCG TABLET PO SCH (06:02)
[2019-07-07 07:00] VITALS: BP 156/78
[2019-07-07 08:16] LABS: CALCIUM 9.4 mg/dL (8.5-10.1); CREATININE 1.4 mg/dL (0.6-1.0); GFR 35.4; PHOSPHORUS 3.3 mg/dL (2.6-4.7); POTASSIUM 4.9 mmol/L (3.5-5.1)
[2019-07-07] MEDS: PANTOPRAZOLE 40 MG TABLET.DR. PO SCH (08:23)
[2019-07-07] MEDS: CHOLECALCIFEROL (VITAMIN D3) 1,000 UNIT TABLET PO SCH (08:25)
[2019-07-07] MEDS: METOPROLOL TART IMMED RELEASE 50 MG TABLET. PO SCH (08:25)
[2019-07-07] MEDS: APIXABAN 5 MG TABLET. PO SCH (08:25)
[2019-07-07] MEDS: MAGNESIUM OXIDE 400 MG TABLET PO SCH (08:25)
[2019-07-07] MEDS ORDERED: LOSARTAN POTASSIUM 50 MG TABLET. PO SCH (09:00)
[2019-07-07] MEDS ORDERED: SPIRONOLACTONE 25 MG TABLET PO SCH (09:00)
--- NOTE | 2019-07-07 09:36 | PDOC ---
PROGRESS NOTES History of Present Illness History of Present Illness discharge dx Acute on chronic deep venous thrombosis with worsening leg pain. similar appearing nonocclusive thrombus in the right anterior peroneal vein. No left DVT. morbid obesity Acute renal failure, vasomotor-nephropathy CKD 3-4 cr down to 1.4 ON US 07/05 Both kidneys are somewhat atrophic, no hydronephrosis. 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 will see a urologist soon about this There is probable 0.6 cm calculus of the left kidney. UNCONTROLLED HTN admitted. consult Vascular Surgery. Lovenox 1 mg/kg subq q.12, home meds, p.r.n. Lortab, IV hydration. id consult nephrology following eliquis 5 mg po bid HOME MEDS PRN IV HYDRALAZINE 10MG Q 4 HRS PRN BP CONTROL d/c today, cr stable 07/07 full anticoagulation for at least 3 months // DVT and compression stockings. 29 min pt exam, chart review d/c planning, > 50% of time spent with exam, chart review, pt care coordination Vitals Vitals Vital Signs Date Time Temp Pulse Resp B/P (MAP) Pulse Ox O2 Delivery O2 Flow Rate FiO2 07/07/19 08:26 72 156/78 07/07/19 07:00 98.5 16 96 Room Air 98.5 Physical Exam Physical Exam NECK: Supple, no JVD, no thyromegaly was noted. LUNGS: Clear to auscultation in all lung bennett without rhonchi or wheezing. HEART: RRR, S1, S2 present. Peripheral pulses intact, no obvious murmurs were noted. ABDOMEN: Soft, nontender. Positive bowel sounds no organomegaly, normal bowel sounds. EXTREMITIES: Without any cyanosis, clubbing, or edema. Pedal pulses intact, Homans sign is negative. NEUROLOGIC: Normal speech, normal tone. A & O x3, moves all extremities, no obvious focal deficits. PSYCHIATRIC: Normal affect, normal mood. Stable. SKIN: No ulcerations or rashes, good skin turgor, no jaundice. VASCULAR: Good capillary refill, neurovascular bundle appears to be intact. RIGHT CALF NOT TENDER General: Alert, Oriented X3, Cooperative, No acute distress Heart: Regular rate, Normal S1, Normal S2 Lungs: Clear Abdomen: Normal bowel sounds, Soft, No hepatosplenomegaly Extremities: No clubbing, No cyanosis Skin: No breakdown Labs LABS Laboratory Tests Test 07/07/19 06:45 Sodium Level 136 mmol/L (136-145) Potassium Level 4.9 mmol/L (3.5-5.1) Chloride Level 103 mmol/L (98-107) Carbon Dioxide Level 23 mmol/L (21-32) Anion Gap 10 (6-14) Blood Urea Nitrogen 31 mg/dL (7-20) Creatinine 1.4 mg/dL (0.6-1.0) Estimated GFR (Cockcroft-Gault) 35.4 Glucose Level 142 mg/dL (70-99) Calcium Level 9.4 mg/dL (8.5-10.1) Phosphorus Level 3.3 mg/dL (2.6-4.7) Albumin 3.0 g/dL (3.4-5.0) Assessment and Plan Assessmemt and Plan Problems Medical Problems: (1) DVT (deep venous thrombosis) Status: Acute Comment Review of Relevant I have reviewed the following items manju (where applicable) has been applied. Labs Laboratory Tests Test 07/05/19 15:04 07/05/19 23:31 07/06/19 05:00 07/07/19 06:45 Prothrombin Time 14.5 SEC (11.7-14.0) Prothromb Time International Ratio 1.2 (0.8-1.1) Sodium Level 137 mmol/L (136-145) 136 mmol/L (136-145) 136 mmol/L (136-145) Potassium Level 4.7 mmol/L (3.5-5.1) 4.6 mmol/L (3.5-5.1) 4.9 mmol/L (3.5-5.1) Chloride Level 101 mmol/L (98-107) 104 mmol/L (98-107) 103 mmol/L (98-107) Carbon Dioxide Level 27 mmol/L (21-32) 24 mmol/L (21-32) 23 mmol/L (21-32) Anion Gap 9 (6-14) 8 (6-14) 10 (6-14) Blood Urea Nitrogen 37 mg/dL (7-20) 35 mg/dL (7-20) 31 mg/dL (7-20) Creatinine 1.6 mg/dL (0.6-1.0) 1.5 mg/dL (0.6-1.0) 1.4 mg/dL (0.6-1.0) Estimated GFR (Cockcroft-Gault) 30.3 32.7 35.4 Glucose Level 186 mg/dL (70-99) 139 mg/dL (70-99) 142 mg/dL (70-99) Calcium Level 9.5 mg/dL (8.5-10.1) 9.3 mg/dL (8.5-10.1) 9.4 mg/dL (8.5-10.1) Urine Color Yellow Urine Clarity Clear Urine pH 6.5 Urine Specific [place] 1.010 Urine Protein Negative mg/dL (NEG-TRACE) Urine Glucose (UA) Negative mg/dL (NEG) Urine Ketones (Stick) Negative mg/dL (NEG) Urine Blood Trace (NEG) Urine Nitrite Negative (NEG) Urine Bilirubin Negative (NEG) Urine Urobilinogen Dipstick 1.0 mg/dL (0.2 mg/dL) Urine Leukocyte Esterase Small (NEG) Urine RBC 3-5 /HPF (0-2) Urine WBC 11-20 /HPF (0-4) Urine Squamous Epithelial Cells Mod /LPF Urine Bacteria Few /HPF (0-FEW) Urine Mucus Slight /LPF Phosphorus Level 3.3 mg/dL (2.6-4.7) 3.3 mg/dL (2.6-4.7) Albumin 3.0 g/dL (3.4-5.0) 3.0 g/dL (3.4-5.0) Laboratory Tests Test 07/07/19 06:45 Sodium Level 136 mmol/L (136-145) Potassium Level 4.9 mmol/L (3.5-5.1) Chloride Level 103 mmol/L (98-107) Carbon Dioxide Level 23 mmol/L (21-32) Anion Gap 10 (6-14) Blood Urea Nitrogen 31 mg/dL (7-20) Creatinine 1.4 mg/dL (0.6-1.0) Estimated GFR (Cockcroft-Gault) 35.4 Glucose Level 142 mg/dL (70-99) Calcium Level 9.4 mg/dL (8.5-10.1) Phosphorus Level 3.3 mg/dL (2.6-4.7) Albumin 3.0 g/dL (3.4-5.0) Medications Current Medications Ondansetron HCl (Zofran) 4 mg PRN Q8HRS PRN IV NAUSEA/VOMITING; Start 07/04/19 at 19:45; Stop 07/05/19 at 19:44; Status DC Fentanyl Citrate (Fentanyl 2ml Vial) 50 mcg PRN Q1HR PRN IV PAIN Last administered on 07/05/19at 05:37; Start 07/04/19 at 19:45; Stop 07/05/19 at 19:44; Status DC Enoxaparin Sodium (Lovenox 80mg Syringe) 80 mg 1X ONCE SQ Last administered on 07/04/19at 19:49; Start 07/04/19 at 19:45; Stop 07/04/19 at 19:46; Status DC Enoxaparin Sodium (Lovenox Per Pharmacy Treatment Dosing) 1 each PRN DAILY PRN MC SEE COMMENTS; Start 07/04/19 at 20:30; Stop 07/05/19 at 14:19; Status DC Sodium Chloride 1,000 ml @ 75 mls/hr [id number] IV Last administered on 07/05/19at 21:09; Start 07/04/19 at 20:00; Stop 07/06/19 at 12:24; Status DC Enoxaparin Sodium (Lovenox 40mg Syringe) 40 mg Q24H SQ ; Start 07/05/19 at 21:00; Stop 07/04/19 at 20:18; Status DC Acetaminophen/ Hydrocodone Bitart (Lortab 5/325) 1 tab Q6HRS PRN PO PAIN Last administered on 07/06/19at 20:21; Start 07/04/19 at 20:15 Enoxaparin Sodium (Lovenox 100mg Syringe) 90 mg QHS SQ ; Start 07/05/19 at 21:00; Stop 07/05/19 at 14:19; Status DC Nystatin (Nystop) 1 prateek BID TP Last administered on 07/06/19at 20:19; Start 07/05/19 at 09:00 Info (Anti-Coagulation Monitoring By Pharmacy) 1 each PRN DAILY PRN MC SEE COMMENTS Last administered on 07/06/19 12:25; Start 07/05/19 at 12:45 Apixaban (Eliquis) 5 mg BID PO Last administered on 07/07/19 08:25; Start 07/05/19 at 21:00 Atorvastatin Calcium (Lipitor) 40 mg QHS PO Last administered on 07/06/19 20:19; Start 07/06/19 at 21:00 Levothyroxine Sodium (Synthroid) 112 mcg DAILY06 PO Last administered on 07/07/19 06:02; Start 07/06/19 at 13:00 Losartan Potassium (Cozaar) 50 mg DAILY PO Last administered on 07/06/19 11:58; Start 07/06/19 at 12:00; Stop 07/06/19 at 12:24; Status DC Magnesium Oxide (Magnesium Oxide) 400 mg DAILY PO Last administered on 07/07/19 08:25; Start 07/06/19 at 12:00 Pantoprazole Sodium (Protonix) 40 mg DAILYAC PO Last administered on 07/07/19 08:23; Start 07/06/19 at 12:00 Vitamin D (Vitamin D3) 2,000 unit DAILY PO Last administered on 07/07/19 08:25; Start 07/06/19 at 12:00 Metoprolol Tartrate (Lopressor) 50 mg BID PO Last administered on 07/07/19 08:25; Start 07/06/19 at 12:00 Losartan Potassium (Cozaar) 100 mg DAILY PO Last administered on 07/07/19 08:26; Start 07/07/19 at 09:00 Losartan Potassium (Cozaar) 50 mg 1X ONCE PO Last administered on 07/06/19 13:37; Start 07/06/19 at 13:00; Stop 07/06/19 at 13:01; Status DC Spironolactone (Aldactone) 25 mg DAILY PO Last administered on 07/07/19 08:26; Start 07/07/19 at 09:00 Clonidine HCl (Catapres) 0.1 mg PRN Q1HR PRN PO HYPERTENSION; Start 07/06/19 at 20:15 Ondansetron HCl (Zofran) 4 mg PRN Q6HRS PRN IVP NAUSEA/VOMITING; Start 07/06/19 at 20:15 Acetaminophen (Tylenol) 500 mg PRN Q6HRS PRN PO MILD PAIN / TEMP; Start 07/06/19 at 20:15 Temazepam (Restoril) 7.5 mg PRN QHS PRN PO INSOMNIA; Start 07/06/19 at 20:15 Active Scripts Active Reported Spironolactone 25 Mg Tablet 1 Tab PO DAILY Mag-Oxide (Magnesium Oxide) 400 Mg Tablet 1 Tab PO DAILY 30 Days Vitamin D-3 (Cholecalciferol (Vitamin D3)) 2,000 Unit Capsule 1 Cap PO DAILY 30 Days Losartan Potassium 50 Mg Tablet 50 Mg PO DAILY Atorvastatin Calcium 40 Mg Tablet 1 Tab PO QHS Bystolic (Nebivolol) 10 Mg Tablet 10 Mg PO DAILY Levothyroxine Sodium 112 Mcg Tablet 1 Tab PO DAILY Protonix (Pantoprazole Sodium) 40 Mg Tablet.dr 40 Mg PO DAILYAC Vitals/I & O Vital Sign - Last 24 Hours 07/06/19 07/06/19 07/06/19 07/06/19 11:56 11:58 11:58 13:37 Temp 97.3 97.3 Pulse 71 71 71 71 Resp 16 B/P (MAP) 175/51 (92) 175/51 175/51 175/51 Pulse Ox 97 O2 Delivery Room Air 07/06/19 07/06/19 07/06/19 07/06/19 15:49 19:44 20:00 20:19 Temp 98.0 97.6 98.0 97.6 Pulse 60 71 71 Resp 18 16 B/P (MAP) 143/42 (75) 152/59 (90) 152/59 Pulse Ox 98 98 O2 Delivery Room Air Room Air Room Air 07/06/19 07/06/19 07/06/19 07/07/19 20:21 21:21 23:20 03:34 Temp 97.9 98.3 97.9 98.3 Pulse 62 70 Resp 16 16 16 16 B/P (MAP) 162/54 (90) 165/59 (94) Pulse Ox 98 97 96 O2 Delivery Room Air Room Air Room Air Room Air 07/07/19 07/07/19 07/07/19 07:00 08:25 08:26 Temp 98.5 98.5 Pulse 72 72 72 Resp 16 B/P (MAP) 156/78 (104) 156/78 156/78 Pulse Ox 96 O2 Delivery Room Air Intake and Output 07/06/19 07/06/19 07/07/19 15:00 23:00 07:00 Intake Total 900 ml 440 ml Output Total 400 ml Balance 900 ml 40 ml SARAH CRUM MD Jul 07, 2019 09:36
--- NOTE | 2019-07-07 10:02 | PDOC ---
SUBJECTIVE ROS Stable , Pt on the phone Per RN no complaints or concerns OBJECTIVE Vital Signs Vital Signs Date Time Temp Pulse Resp B/P (MAP) Pulse Ox O2 Delivery O2 Flow Rate FiO2 07/07/19 08:26 72 156/78 07/07/19 08:00 Room Air 07/07/19 07:00 98.5 16 96 98.5 I & 0 Intake and Output 07/07/19 06:59 Intake Total 1340 ml Output Total 400 ml Balance 940 ml Intake Oral 740 ml IV Total 600 ml Output Urine Total 400 ml # Voids 1 # Bowel Movements 1 PHYSICAL EXAM Physical Exam GENERAL: No apparent distress. HEENT: OM moist NECK: Supple LUNGS: Clear to auscultation HEART: RRR, S1, S2 present. ABDOMEN: Soft, nontender. EXTREMITIES: No edema. NEUROLOGIC: Grossly normal DIAGNOSIS/ASSESSMENT Assessment & Plan Chronic Kidney disease stage III: Stable kidney function with creatinine between 1.5 and 1.7 at presentation. Both kidneys are somewhat atrophic, no hydronephrosis. Follows with me, advise to keep scheduled follow up appt HTN - On multiple meds, stable superior right kidney, possibly a lipoma: May need follow-up as outpatient with urology There is probable 0.6 cm calculus of the left kidney noted on sonogram. Patient remains asymptomatic at this time and hence no intervention. 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 per primary COMMENT/RELEVANT DATA Meds Current Medications Medications (Trade) Dose Ordered Sig/Alfred Start Time Stop Time Status Last Admin Dose Admin Acetaminophen (Tylenol) 500 mg PRN Q6HRS PRN 07/06/19 20:15 Acetaminophen/ Hydrocodone Bitart (Lortab 5/325) 1 tab Q6HRS PRN 07/04/19 20:15 07/06/19 20:21 1 TAB Apixaban (Eliquis) 5 mg BID 07/05/19 21:00 07/07/19 08:25 5 MG Atorvastatin Calcium (Lipitor) 40 mg QHS 07/06/19 21:00 07/06/19 20:19 40 MG Clonidine HCl (Catapres) 0.1 mg PRN Q1HR PRN 07/06/19 20:15 Enoxaparin Sodium (Lovenox 100mg Syringe) 90 mg QHS 07/05/19 21:00 07/05/19 14:19 DC Enoxaparin Sodium (Lovenox 40mg Syringe) 40 mg Q24H 07/05/19 21:00 07/04/19 20:18 DC Enoxaparin Sodium (Lovenox 80mg Syringe) 80 mg 1X ONCE 07/04/19 19:45 07/04/19 19:46 DC 07/04/19 19:49 80 MG Enoxaparin Sodium (Lovenox Per Pharmacy Treatment Dosing) 1 each PRN DAILY PRN 07/04/19 20:30 07/05/19 14:19 DC Fentanyl Citrate (Fentanyl 2ml Vial) 50 mcg PRN Q1HR PRN 07/04/19 19:45 07/05/19 19:44 DC 07/05/19 05:37 50 MCG Info (Anti-Coagulation Monitoring By Pharmacy) 1 each PRN DAILY PRN 07/05/19 12:45 07/06/19 12:25 1 EACH Levothyroxine Sodium (Synthroid) 112 mcg DAILY06 07/06/19 13:00 07/07/19 06:02 112 MCG Losartan Potassium (Cozaar) 50 mg 1X ONCE 07/06/19 13:00 07/06/19 13:01 DC 07/06/19 13:37 50 MG Magnesium Oxide (Magnesium Oxide) 400 mg DAILY 07/06/19 12:00 07/07/19 08:25 400 MG Metoprolol Tartrate (Lopressor) 50 mg BID 07/06/19 12:00 07/07/19 08:25 50 MG Nystatin (Nystop) 1 prateek BID 07/05/19 09:00 07/06/19 20:19 1 PRATEEK Ondansetron HCl (Zofran) 4 mg PRN Q6HRS PRN 07/06/19 20:15 Pantoprazole Sodium (Protonix) 40 mg DAILYAC 07/06/19 12:00 07/07/19 08:23 40 MG Sodium Chloride 1,000 ml @ 75 mls/hr [id number] 07/04/19 20:00 07/06/19 12:24 DC 07/05/19 21:09 75 MLS/HR Spironolactone (Aldactone) 25 mg DAILY 07/07/19 09:00 07/07/19 08:26 25 MG Temazepam (Restoril) 7.5 mg PRN QHS PRN 07/06/19 20:15 Vitamin D (Vitamin D3) 2,000 unit DAILY 07/06/19 12:00 07/07/19 08:25 2,000 UNIT Lab Laboratory Tests Test 07/07/19 06:45 Sodium Level 136 mmol/L (136-145) Potassium Level 4.9 mmol/L (3.5-5.1) Chloride Level 103 mmol/L (98-107) Carbon Dioxide Level 23 mmol/L (21-32) Anion Gap 10 (6-14) Blood Urea Nitrogen 31 mg/dL (7-20) Creatinine 1.4 mg/dL (0.6-1.0) Estimated GFR (Cockcroft-Gault) 35.4 Glucose Level 142 mg/dL (70-99) Calcium Level 9.4 mg/dL (8.5-10.1) Phosphorus Level 3.3 mg/dL (2.6-4.7) Albumin 3.0 g/dL (3.4-5.0) Results All relevant outside records, renal labs, imaging studies, telemetry/EKG's were reviewed. SCOOBY PEREZ MD Jul 07, 2019 10:02
[2019-07-07] MEDS: NYSTATIN TOPICAL POWDER 15GM BOTTLE. TP SCH (10:40)
[2019-07-07 11:00] VITALS: BP 168/60
--- NOTE | 2019-07-07 11:54 | PDOC3 ---
Discharge Summary Date of Admission: Jul 04, 2019 Date of Discharge: Jul 07, 2019 Follow-Up: 3-5 days Admitting Diagnosis comment: discharge dx Acute on chronic deep venous thrombosis with worsening leg pain. similar appearing nonocclusive thrombus in the right anterior peroneal vein. No left DVT. morbid obesity Acute renal failure, vasomotor-nephropathy CKD 3-4 cr down to 1.4 ON US 07/05 Both kidneys are somewhat atrophic, no hydronephrosis. 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 will see a urologist soon about this There is probable 0.6 cm calculus of the left kidney. UNCONTROLLED HTN admitted. consult Vascular Surgery. Lovenox 1 mg/kg subq q.12, home meds, p.r.n. Lortab, IV hydration. id consult nephrology following eliquis 5 mg po bid HOME MEDS PRN IV HYDRALAZINE 10MG Q 4 HRS PRN BP CONTROL d/c today, cr stable 07/07 full anticoagulation for at least 3 months // DVT and compression stockings. 29 min pt exam, chart review d/c planning, > 50% of time spent with exam, chart review, pt care coordination Vitals Vitals Vital Signs Date Time Temp Pulse Resp B/P (MAP) Pulse Ox O2 Delivery O2 Flow Rate FiO2 07/07/19 08:26 72 156/78 07/07/19 07:00 98.5 16 96 Room Air 98.5 Physical Exam Physical Exam NECK: Supple, no JVD, no thyromegaly was noted. LUNGS: Clear to auscultation in all lung bennett without rhonchi or wheezing. HEART: RRR, S1, S2 present. Peripheral pulses intact, no obvious murmurs were noted. ABDOMEN: Soft, nontender. Positive bowel sounds no organomegaly, normal bowel sounds. EXTREMITIES: Without any cyanosis, clubbing, or edema. Pedal pulses intact, Homans sign is negative. NEUROLOGIC: Normal speech, normal tone. A & O x3, moves all extremities, no obvious focal deficits. PSYCHIATRIC: Normal affect, normal mood. Stable. SKIN: No ulcerations or rashes, good skin turgor, no jaundice. VASCULAR: Good capillary refill, neurovascular bundle appears to be intact. RIGHT CALF NOT TENDER General: Alert, Oriented X3, Cooperative, No acute distress Heart: Regular rate, Normal S1, Normal S2 Lungs: Clear Abdomen: Normal bowel sounds, Soft, No hepatosplenomegaly Extremities: No clubbing, No cyanosis Skin: No breakdown FINAL DIAGNOSIS Problems Medical Problems: (1) DVT (deep venous thrombosis) Status: Acute Brief Hospital Course Ms. Rojas is a 88 old [sex] who presented with [ arf, dvt leg] CONDITION AT DISCHARGE: Improved Discharge Medications Current Medications Ondansetron HCl (Zofran) 4 mg PRN Q8HRS PRN IV NAUSEA/VOMITING; Start 07/04/19 at 19:45; Stop 07/05/19 at 19:44; Status DC Fentanyl Citrate (Fentanyl 2ml Vial) 50 mcg PRN Q1HR PRN IV PAIN Last administered on 07/05/19at 05:37; Start 07/04/19 at 19:45; Stop 07/05/19 at 19:44; Status DC Enoxaparin Sodium (Lovenox 80mg Syringe) 80 mg 1X ONCE SQ Last administered on 07/04/19at 19:49; Start 07/04/19 at 19:45; Stop 07/04/19 at 19:46; Status DC Enoxaparin Sodium (Lovenox Per Pharmacy Treatment Dosing) 1 each PRN DAILY PRN MC SEE COMMENTS; Start 07/04/19 at 20:30; Stop 07/05/19 at 14:19; Status DC Sodium Chloride 1,000 ml @ 75 mls/hr [id number] IV Last administered on 07/05/19at 21:09; Start 07/04/19 at 20:00; Stop 07/06/19 at 12:24; Status DC Enoxaparin Sodium (Lovenox 40mg Syringe) 40 mg Q24H SQ ; Start 07/05/19 at 21:00; Stop 07/04/19 at 20:18; Status DC Acetaminophen/ Hydrocodone Bitart (Lortab 5/325) 1 tab Q6HRS PRN PO PAIN Last administered on 07/06/19at 20:21; Start 07/04/19 at 20:15 Enoxaparin Sodium (Lovenox 100mg Syringe) 90 mg QHS SQ ; Start 07/05/19 at 21:00; Stop 07/05/19 at 14:19; Status DC Nystatin (Nystop) 1 prateek BID TP Last administered on 07/07/19 10:40; Start 07/05/19 at 09:00 Info (Anti-Coagulation Monitoring By Pharmacy) 1 each PRN DAILY PRN MC SEE COMMENTS Last administered on 07/06/19 12:25; Start 07/05/19 at 12:45 Apixaban (Eliquis) 5 mg BID PO Last administered on 07/07/19 08:25; Start 07/05/19 at 21:00 Atorvastatin Calcium (Lipitor) 40 mg QHS PO Last administered on 07/06/19 20:19; Start 07/06/19 at 21:00 Levothyroxine Sodium (Synthroid) 112 mcg DAILY06 PO Last administered on 07/07/19 06:02; Start 07/06/19 at 13:00 Losartan Potassium (Cozaar) 50 mg DAILY PO Last administered on 07/06/19 11:58; Start 07/06/19 at 12:00; Stop 07/06/19 at 12:24; Status DC Magnesium Oxide (Magnesium Oxide) 400 mg DAILY PO Last administered on 07/07/19 08:25; Start 07/06/19 at 12:00 Pantoprazole Sodium (Protonix) 40 mg DAILYAC PO Last administered on 07/07/19 08:23; Start 07/06/19 at 12:00 Vitamin D (Vitamin D3) 2,000 unit DAILY PO Last administered on 07/07/19 08:25; Start 07/06/19 at 12:00 Metoprolol Tartrate (Lopressor) 50 mg BID PO Last administered on 07/07/19 08:25; Start 07/06/19 at 12:00 Losartan Potassium (Cozaar) 100 mg DAILY PO Last administered on 07/07/19 08:26; Start 07/07/19 at 09:00 Losartan Potassium (Cozaar) 50 mg 1X ONCE PO Last administered on 07/06/19 13:37; Start 07/06/19 at 13:00; Stop 07/06/19 at 13:01; Status DC Spironolactone (Aldactone) 25 mg DAILY PO Last administered on 07/07/19 08:26; Start 07/07/19 at 09:00 Clonidine HCl (Catapres) 0.1 mg PRN Q1HR PRN PO HYPERTENSION; Start 07/06/19 at 20:15 Ondansetron HCl (Zofran) 4 mg PRN Q6HRS PRN IVP NAUSEA/VOMITING; Start 07/06/19 at 20:15 Acetaminophen (Tylenol) 500 mg PRN Q6HRS PRN PO MILD PAIN / TEMP; Start 07/06/19 at 20:15 Temazepam (Restoril) 7.5 mg PRN QHS PRN PO INSOMNIA; Start 07/06/19 at 20:15 Active Scripts Active Reported Spironolactone 25 Mg Tablet 1 Tab PO DAILY Mag-Oxide (Magnesium Oxide) 400 Mg Tablet 1 Tab PO DAILY 30 Days Vitamin D-3 (Cholecalciferol (Vitamin D3)) 2,000 Unit Capsule 1 Cap PO DAILY 30 Days Losartan Potassium 50 Mg Tablet 50 Mg PO DAILY Atorvastatin Calcium 40 Mg Tablet 1 Tab PO QHS Bystolic (Nebivolol) 10 Mg Tablet 10 Mg PO DAILY Levothyroxine Sodium 112 Mcg Tablet 1 Tab PO DAILY Protonix (Pantoprazole Sodium) 40 Mg Tablet.dr 40 Mg PO DAILYAC Vital Signs Vital Signs Date Time Temp Pulse Resp B/P (MAP) Pulse Ox O2 Delivery O2 Flow Rate FiO2 07/07/19 11:00 98.0 69 16 168/60 (96) 96 Room Air 98.0 Labs Laboratory Tests Test 07/05/19 15:04 07/05/19 23:31 07/06/19 05:00 07/07/19 06:45 Prothrombin Time 14.5 SEC (11.7-14.0) Prothromb Time International Ratio 1.2 (0.8-1.1) Sodium Level 137 mmol/L (136-145) 136 mmol/L (136-145) 136 mmol/L (136-145) Potassium Level 4.7 mmol/L (3.5-5.1) 4.6 mmol/L (3.5-5.1) 4.9 mmol/L (3.5-5.1) Chloride Level 101 mmol/L (98-107) 104 mmol/L (98-107) 103 mmol/L (98-107) Carbon Dioxide Level 27 mmol/L (21-32) 24 mmol/L (21-32) 23 mmol/L (21-32) Anion Gap 9 (6-14) 8 (6-14) 10 (6-14) Blood Urea Nitrogen 37 mg/dL (7-20) 35 mg/dL (7-20) 31 mg/dL (7-20) Creatinine 1.6 mg/dL (0.6-1.0) 1.5 mg/dL (0.6-1.0) 1.4 mg/dL (0.6-1.0) Estimated GFR (Cockcroft-Gault) 30.3 32.7 35.4 Glucose Level 186 mg/dL (70-99) 139 mg/dL (70-99) 142 mg/dL (70-99) Calcium Level 9.5 mg/dL (8.5-10.1) 9.3 mg/dL (8.5-10.1) 9.4 mg/dL (8.5-10.1) Urine Color Yellow Urine Clarity Clear Urine pH 6.5 Urine Specific [place] 1.010 Urine Protein Negative mg/dL (NEG-TRACE) Urine Glucose (UA) Negative mg/dL (NEG) Urine Ketones (Stick) Negative mg/dL (NEG) Urine Blood Trace (NEG) Urine Nitrite Negative (NEG) Urine Bilirubin Negative (NEG) Urine Urobilinogen Dipstick 1.0 mg/dL (0.2 mg/dL) Urine Leukocyte Esterase Small (NEG) Urine RBC 3-5 /HPF (0-2) Urine WBC 11-20 /HPF (0-4) Urine Squamous Epithelial Cells Mod /LPF Urine Bacteria Few /HPF (0-FEW) Urine Mucus Slight /LPF Phosphorus Level 3.3 mg/dL (2.6-4.7) 3.3 mg/dL (2.6-4.7) Albumin 3.0 g/dL (3.4-5.0) 3.0 g/dL (3.4-5.0) Laboratory Tests Test 07/07/19 06:45 Sodium Level 136 mmol/L (136-145) Potassium Level 4.9 mmol/L (3.5-5.1) Chloride Level 103 mmol/L (98-107) Carbon Dioxide Level 23 mmol/L (21-32) Anion Gap 10 (6-14) Blood Urea Nitrogen 31 mg/dL (7-20) Creatinine 1.4 mg/dL (0.6-1.0) Estimated GFR (Cockcroft-Gault) 35.4 Glucose Level 142 mg/dL (70-99) Calcium Level 9.4 mg/dL (8.5-10.1) Phosphorus Level 3.3 mg/dL (2.6-4.7) Albumin 3.0 g/dL (3.4-5.0) Allergies Allergies Coded Allergies Type Severity Reaction Last Updated Verified oxaprozin Allergy Intermediate 07/04/19 Yes Disposition/Orders: D/C to Home Patient Instructions d/c planning 29 min SARAH CRUM MD Jul 07, 2019 11:54
[2019-07-07] MEDS ORDERED: ACET500T68 PO (12:02)
[2019-07-07] MEDS ORDERED: NYST60PO TP (12:02)
[2019-07-07] MEDS ORDERED: LOSA-73 PO (12:02)
[2019-07-07] MEDS ORDERED: APIX5TAB PO (12:02)
--- NOTE | 2019-07-07 12:03 | SNU/HH DC ---
DISCHARGE WITH HOME HEALTH DISCHARGE INFORMATION: Final Diagnosis: Problems Medical Problems: (1) DVT (deep venous thrombosis) Status: Acute Condition on Discharge: Stable CODE STATUS: Code Status: Full HOME HEALTH: Face to Face: I certify this patient is under my care and that I, or a nurse practitioner or physician's high school assistant football coach working with me, had a face to face encounter that meets the physician face to face encounter requirements with this patient on []. Medical Complications: HTN, Other (dvt) RN For Eval/Treatment: Yes Physical Therapy For: Evalulation/Treatment Occupational Therapy For: Evaluation/Treatment Speech Language Pathology For: Evaluation/Treatment Home Health Aide For: Self-care SOCIAL SCIENTIST For: Community Resources Pt Meets Homebound Status: Fatigue w/ amb., Limited distance walking POST DISCHARGE ORDERS: Activity Instructions for Disc: Activity as tolerated DIET AFTER DISCHARGE: Cardiac CHECKS AFTER DISCHARGE: Checks after discharge: Check blood press - daily TREATMENT/EQUIPMENT ORDERS: Adaptive Equipment Issued: Front wheeled walker CERTIFICATION STATEMENT: Certification Statement: Certification Statement: Based on the above finding, I certify that this patient is confined to the home and needs intermittent assisted care, physical therapy and/or speech therapy, or continues to need occupational therapy.~ This patient is under my care, and I have initiated the establishment of the plan of care.~ This patient will be followed by myself or a community physician who will periodically review the plan of care. Home Meds Active Scripts Nystatin (NYSTOP) 60 Gm Powder, 1 JIGNA TP BID for rash for 14 Days, #30 MISC Prov:SARAH CRUM MD 07/07/19 Acetaminophen (ACETAMINOPHEN) 500 Mg Tablet, 500 MG PO PRN Q6HRS PRN for MILD PAIN / TEMP for 30 Days, #60 TAB Prov:SARAH CRUM MD 07/07/19 Losartan Potassium (COZAAR ) 50 Mg Tablet, 100 MG PO DAILY for blood pressure for 30 Days, #60 TAB Prov:SARAH CRUM MD 07/07/19 Apixaban (ELIQUIS) 5 Mg Tablet, 5 MG PO BID for dvt for 30 Days, #60 TAB Prov:SARAH CRUM MD 07/07/19 Reported Medications Spironolactone (SPIRONOLACTONE) 25 Mg Tablet, 1 TAB PO DAILY for HTN, #90 TAB 1 Refill 07/06/19 Magnesium Oxide (MAG-OXIDE) 400 Mg Tablet, 1 TAB PO DAILY for supplement for 30 Days, #30 TAB 0 Refills 07/05/19 Cholecalciferol (Vitamin D3) (VITAMIN D-3) 2,000 Unit Capsule, 1 CAP PO DAILY for supplement for 30 Days, #30 CAP 0 Refills 07/05/19 Atorvastatin Calcium (ATORVASTATIN CALCIUM) 40 Mg Tablet, 1 TAB PO QHS for high cholesterol, #90 TAB 3 Refills 07/05/19 Nebivolol Hcl (BYSTOLIC) 10 Mg Tablet, 10 MG PO DAILY for blood pressure, TAB 07/05/19 Levothyroxine Sodium (LEVOTHYROXINE SODIUM) 112 Mcg Tablet, 1 TAB PO DAILY for hypothyroidism, #30 TAB 5 Refills 07/05/19 Pantoprazole Sodium (PROTONIX ) 40 Mg Tablet.dr, 40 MG PO DAILYAC for GERD, TAB 07/05/19 Discontinued Reported Medications Losartan Potassium (LOSARTAN POTASSIUM) 50 Mg Tablet, 50 MG PO DAILY for HYPERTENSION, TAB 07/05/19 SARAH CRUM MD Jul 07, 2019 12:03
--- NOTE | 2019-07-07 12:14 | NUR ---
SW consulted for making changes on Advance directives. Chart reviewed and discussed with RN. Pt lives at home with her grandson and reported her former DPOA has passed and would like to appoint her grandson as DPOA for healthcare decision. Pt completed and signed form. Pt is provided with original and copies to take home. A copy also placed in pt's chart. Pt denies any other SW needs at this time and hopes to go home today. PT/OT pending. Anticipate pt will dc home with self care today.
--- NOTE | 2019-07-07 13:59 | NUR ---
SW notified pt will need services. Pt agreeable with [facility], phone: [phone], fax: [phone]. Orders faxed and a nurse from [facility] will visit pt tomorrow. Discussed with RN.
[2019-07-07 15:34] VITALS: BP 165/46
[2019-07-07] MEDS: HYDROcodone/APAP 5/325MG 1 TAB TABLET PO PRN (17:27)
--- NOTE | 2019-07-07 18:02 | NUR ---
Discharge Note: ROXANN MYERS [address] Discharge instructions and discharge home medications reviewed with patient and a copy given. All questions have been answered and understanding verbalized. The following instructions and handouts were given: Do not massage right leg. Ambulate with walker (walker released to patient). Take eliquis as instructed, prescription called to [facility] pharmacy in [place]. Watch out for bleeding. Follow up with PCP soon, Urology as instructed, Nephrology in 4 weeks (clinic numbers given). Discontinued lines and drains: peripheral IV intact, patient tolerated removal, no complications noted. Patient discharged to home with home health via wheelchair accompanied by the patient's grandson at [id number].
== END 2019-07-07 23:35 | disposition home health service (06) | DRG 299 ==
LOC: ER 15:13 → 6 SOUTH 19:36
PROVIDERS: ADMIT Internal Medicine; ATTEND Internal Medicine
DX: I82.401 Acute embolism and thrombosis of unspecified deep veins of right lower extremity (principal); N17.0 Acute kidney failure with tubular necrosis; N18.4 Chronic kidney disease, stage 4 (severe); E66.01 Morbid (severe) obesity due to excess calories; E11.22 Type 2 diabetes mellitus with diabetic chronic kidney disease; E78.5 Hyperlipidemia, unspecified; I12.9 Hypertensive chronic kidney disease with stage 1 through stage 4 chronic kidney disease, or unspecified chronic kidney disease; M19.90 Unspecified osteoarthritis, unspecified site; I25.10 Atherosclerotic heart disease of native coronary artery without angina pectoris; N20.0 Calculus of kidney; Z79.01 Long term (current) use of anticoagulants; Z82.49 Family history of ischemic heart disease and other diseases of the circulatory system; Z86.718 Personal history of other venous thrombosis and embolism; Z91.81 History of falling; Z68.39 Body mass index [BMI] 39.0-39.9, adult; Z88.8 Allergy status to other drugs, medicaments and biological substances
CPT/HCPCS: 36415; 76770; 80048; 80053; 80069; 81001; 85025; 85610; 87086; 93970; 96372; 99285; J1650; J3010; J7030; G0378